=== PATIENT | female | born 1945 | race Caucasian/White ===

== ENCOUNTER 2019-09-11 06:21 | Inpatient (IN) | payer MEDICARE, SELFPAY ==
[2019-09-11] VITALS (70 sets, daily range): BP systolic 98–171; BP diastolic 43–82; PULSE 64–115; RESP 18–34; TEMP 36.8–36.9; O2SAT 89–99; BMI 31.8
--- NOTE | 2019-09-11 06:33 | XRR_ITS ---
PROCEDURE INFORMATION: Exam: XR Chest, 1 View Exam date and time: 09/11/2019 7:26 AM Age: 74 years old Clinical indication: Patient HX: Cough, dyspnea HX of copd; Additional info: Dyspbea TECHNIQUE: Imaging protocol: XR of the chest Views: 1 view. COMPARISON: CR Chest 1 [place] [id number] 06/20/2019 6:28 PM FINDINGS: Lungs: See Pleural Space Finding. Pleural space: Subtle opacity left costophrenic angle likely pleural thickening. Stable . Lungs are otherwise well aerated. Heart/Mediastinum: Unremarkable. No cardiomegaly. Bones/joints: Unremarkable. XR/XR chest 1V portable [id number] IMPRESSION: Subtle opacity left costophrenic angle likely pleural thickening. Stable . Lungs are otherwise well aerated.
--- NOTE | 2019-09-11 06:45 | W.ED.SOB ---
HPI - SOB/Dyspnea General: Chief Complaint: Shortness of Breath/Dyspnea Stated Complaint: SOB Time Seen by Provider: 09/11/19 06:33 History of Present Illness: HPI Narrative: 74-year-old female comes in complaining of shortness of breath. She has a history of COPD was recently switched to a CPAP machine she had seen a local clinical nurse educator. She denies any fever she has had increasing cough she has some pain with cough on the right lower chest but no substernal or central chest pain cough is been minimally productive she denies any nausea vomiting or diarrhea. No fever sweats or chills. She recently self treated with [id number] medications for a presumed cystitis but had not been seen by anyone or evaluate still states she has a pressure sensation when she urinates. MD elicited complaint: shortness of breath, cough and pain with inspiration Pertinent past history: COPD Onset (ago): day(s) Timing: constant Severity: moderate Exacerbating factors: exertion and deep breaths Relieving factors: oxygen, rest and bronchodilators Known history of: COPD Associated symptoms: Reports chest pain (Right lower chest worse with inspiration and cough) and cough; Deny abdominal pain, dizziness, extremity pain, fever(s), nausea, polydipsia, polyuria or vomiting Treatment prior to arrival: oxygen and bronchodilator Review of Systems Const: Denies: fever, chills, body aches, fatigue, malaise or night sweats Eyes: Denies: change in vision or blurry vision ENMT: Denies: throat pain, oral sores/lesions, dental pain, nasal discharge or nasal congestion Card: Reports: chest pain (Right lower chest worse with inspiration and cough) Resp: Reports: shortness of breath, non-productive cough and wheezing; Denies: productive cough GI: Denies: abdominal pain, nausea, vomiting, vomiting blood, coffee grounds in vomit, difficulty swallowing, heartburn/indigestion, diarrhea, constipation, cramping, blood in stool or black tarry stool : Denies: flank pain, painful urination, urinary frequency, urinary urgency, urinary incontinence or blood in urine Musc: Denies: neck pain, back pain, extremity pain, extremity swelling, joint pain or joint swelling Skin/Breast: Denies: rash, itching or redness Neuro: Denies: headache, numbness in extremities, weakness in extremities, changes in sensation, lack of coordination, difficulty walking, frequent falls, dizziness, vertigo or confusion Psych: Denies: anxiety, depression, loss of interest, visual hallucinations, auditory hallucinations, suicidal ideation or homicidal ideation Endo: Denies: excessive urination, excessive thirst, tired all the time or cold intolerance Bentley/Lymph: Denies: easy bruising, easy bleeding, petechiae, enlarged lymph nodes or tender lymph nodes PFSH ED PFSH: Medical History CAD (coronary artery disease) Cataracts, bilateral CHF (congestive heart failure) COPD (chronic obstructive pulmonary disease) Diabetes mellitus Hx of ectopic OLAYINKA (obstructive sleep apnea) Surgical History H/O lymph node excision H/O tubal ligation History of appendectomy History of cholecystectomy History of hysterectomy History of rectal surgery Hx of cataract surgery Hx of tonsillectomy Family History Other CHF (congestive heart failure) Cancer Crohn's disease Diabetes Hypertension Social History Smoking and tobacco status: current every day smoker cigarettes Years cigarettes smoked: 50 [ Other cigarette details: down to 4 cig/day ] Quit status (tobacco): considering quitting Smoking risk assessment/counseling performed?: Yes Alcohol intake: never Lives independently: Yes Household members: none Housing: Apartment Current occupational status: retired and disabled History of recent travel: No Current gender identity: Female Physical Exam Const: COMMON NORMALS: no apparent distress GENERAL APPEARANCE: cooperative and comfortable ORIENTATION/CONSCIOUSNESS: Yes awake, Yes oriented to person, Yes oriented to place and Yes oriented to time HENMT: COMMON NORMALS: normocephalic, head/scalp atraumatic, hearing grossly normal bilaterally, external ears normal, EAC's normal, TM's normal bilaterally, nasal mucous membranes and turbinates normal, moist oral mucous membranes and oropharynx normal HEAD & SCALP: normocephalic and atraumatic NOSE: nasal mucous membranes and turbinates normal EXTERNAL EAR: Yes external ears normal EXTERNAL AUDITORY CANAL: EAC's normal TYMPANIC MEMBRANE: TM's normal bilaterally Eye: COMMON NORMALS: PERRL, EOMs intact bilaterally, conjunctivae normal and no scleral icterus CONJUNCTIVA: Yes conjunctivae normal PUPIL: Yes PERRL Neck/C-Spine: COMMON NORMALS: full ROM, no lymphadenopathy, supple and no JVD Lymph: LYMPHATIC: no lymphadenopathy noted and no lymphedema noted Resp: EFFORT & INSPECTION: Yes tachypneic, Yes respiratory distress, Yes pursed lip breathing and Yes labored AUSCULTATION: diminished lung sounds OTHER: Diminished breath sounds throughout bilaterally has expiratory wheeze no rales or rhonchi noted Cardio: COMMON NORMALS: no JVD, regular rate, regular rhythm and no murmurs RATE: regular rate RHYTHM: regular rhythm GI: COMMON NORMALS: soft to palpation and no hepatosplenomegaly AUSCULTATION: Yes normoactive bowel sounds PALPATION: Yes soft, No tender, No guarding and Yes no hepatosplenomegaly Extremity: COMMON NORMALS: normal to inspection, normal capillary refill, no clubbing, cyanosis or edema, no calf tenderness and no pedal edema Neuro: SENSORIUM/ORIENTATION: Yes oriented to person, Yes oriented to place and Yes oriented to time Skin: COMMON NORMALS: no rashes or lesions noted GENERAL SKIN EXAM: no rashes or lesions noted Course ED course: Patient has hypercapnic respiratory failure tried on BiPAP did not show significant improvement we did increase her respiratory rate. We also gave calcium gluconate sodium bicarb glucose and insulin and albuterol treatments to improve her potassium. She has mild acute kidney injury she is also been given fluids this will also require attention while she is on inpatient. She will require hospitalization discussed Dr. Felder he will admit. Vital Signs: Vital signs: Vital Signs Temperature 98.6 F 09/12/19 13:02 Pulse Rate 102 H 09/12/19 13:02 Respiratory Rate 18 09/12/19 13:02 Blood Pressure 144/62 09/12/19 13:02 Pulse Oximetry 89 L 09/12/19 13:02 MDM - SOB/Dyspnea Lab Data: Labs: Lab Results 09/11/19 09/11/19 09/11/19 Range/Units 00:00 01:20 06:30 WBC 7.4 (4.0-10.0) 10^3/ uL RBC 3.73 L (4.1-5.3) 10^6/u L Hgb 10.0 L (11.5-15.3) g/dL Hct 34.9 L (37.0-47.0) % MCV 93.6 (81-99) fL MCH 26.8 L (28.0-34.0) pg MCHC 28.7 L (30.0-36.0) g/dL RDW 15.9 H (12.1-15.1) % Plt Count 264 (130-400) 10^3/c mm MPV 11.8 H (7.4-10.4) fL Neut % (Auto) 75.8 % Lymph % (Auto) 9.3 % [place] % (Auto) 6.9 % Eos % (Auto) 6.5 % Baso % (Auto) 0.8 % Neut # (Auto) 5.6 (1.8-7.7) 10^3/u L Lymph # (Auto) 0.7 L (0.8-4.8) 10^3/u L [place] # (Auto) 0.5 (0.2-0.9) 10^3/u L Eos # (Auto) 0.5 (0.0-0.8) 10^3/u L Baso # (Auto) 0.1 (0.0-0.1) 10^3/u L Nucleated RBC % (a uto) 0 % Nucleated RBCs # 0.0 /100WBC Specimen Type Sample Site ABG pH (7.35-7.45) ABG pCO2 (35-45) mmHg ABG pO2 (80.0-100.0) mmH g ABG HCO3 (22-26) mmol/L ABG O2 Saturation ABG Base Excess (-2.0-2.0) mmol/ L Kike Test A-a O2 Gradient (5-10) mmHg Hematocrit (37-47) % Hgb O2 Saturation (95-100) % Carboxyhemoglobin (0.4-20.1) %THgb Methemoglobin (0.4-1.5) % Total Hemoglobin (12-16) g/dL Ionized Calcium (1.1-1.4) mmol/L O2 Delivery Device O2 Liters/Min % FiO2 % Journeyman Plumber ID Sodium (136-145) mmol/L Potassium 5.8 H (3.5-5.1) mmol/L Chloride (98-107) mmol/L Carbon Dioxide (22-29) mmol/L Anion Gap (5-19) BUN (8-23) mg/dL Creatinine (0.5-0.9) mg/dL Glucose (65-115) mg/dL Calculated Osmolal ity (285-295) mOsm/k g Calcium (8.5-10.5) mg/dL Total Bilirubin (0.15-1.2) mg/dL AST (0-32) U/L ALT (0-33) U/L Alkaline Phosphata se (35-105) IU/L Total Protein (6.6-8.7) g/dL Albumin (3.5-5.2) g/dL Globulin (1.3-4.6) g/dL Ur Eosinophil Smea r 0 (0-0) Urine Eosinophils No eosinophils se en 09/11/19 09/11/19 09/11/19 Range/Units 06:30 07:07 09:30 WBC (4.0-10.0) 10^3/ uL RBC (4.1-5.3) 10^6/u L Hgb (11.5-15.3) g/dL Hct (37.0-47.0) % MCV (81-99) fL MCH (28.0-34.0) pg MCHC (30.0-36.0) g/dL RDW (12.1-15.1) % Plt Count (130-400) 10^3/c mm MPV (7.4-10.4) fL Neut % (Auto) % Lymph % (Auto) % [place] % (Auto) % Eos % (Auto) % Baso % (Auto) % Neut # (Auto) (1.8-7.7) 10^3/u L Lymph # (Auto) (0.8-4.8) 10^3/u L [place] # (Auto) (0.2-0.9) 10^3/u L Eos # (Auto) (0.0-0.8) 10^3/u L Baso # (Auto) (0.0-0.1) 10^3/u L Nucleated RBC % (a uto) % Nucleated RBCs # /100WBC Specimen Type Arterial Arterial Sample Site Radial, left Radial, right ABG pH 7.26 L 7.22 L (7.35-7.45) ABG pCO2 63.0 H* 66.3 H* (35-45) mmHg ABG pO2 79.3 L 81.3 (80.0-100.0) mmH g ABG HCO3 28.1 H 27.1 H (22-26) mmol/L ABG O2 Saturation 95.4 95.2 ABG Base Excess 0.0 -1.5 (-2.0-2.0) mmol/ L Kike Test Pos Pos A-a O2 Gradient 100.0 H 122.2 H (5-10) mmHg Hematocrit 32.0 L 31.8 L (37-47) % Hgb O2 Saturation 94.4 L 94.3 L (95-100) % Carboxyhemoglobin 0.7 0.6 (0.4-20.1) %THgb Methemoglobin 0.3 L 0.4 (0.4-1.5) % Total Hemoglobin 10.4 L 10.4 L (12-16) g/dL Ionized Calcium 1.2 1.3 (1.1-1.4) mmol/L O2 Delivery Device Nc Bipap O2 Liters/Min 4.0 % FiO2 36.0 40.0 % Journeyman Plumber ID ed ed Sodium 137 141.0 140.0 (136-145) mmol/L Potassium 6.4 H 6.3 H 6.4 H (3.5-5.1) mmol/L Chloride 102 (98-107) mmol/L Carbon Dioxide 28 (22-29) mmol/L Anion Gap 13.4 (5-19) BUN 35 H (8-23) mg/dL Creatinine 1.5 H (0.5-0.9) mg/dL Glucose 143 H 118.0 H 146.0 H (65-115) mg/dL Calculated Osmolal ity 284 L (285-295) mOsm/k g Calcium 9.6 (8.5-10.5) mg/dL Total Bilirubin 0.3 (0.15-1.2) mg/dL AST 15 (0-32) U/L ALT 6 (0-33) U/L Alkaline Phosphata se 69 (35-105) IU/L Total Protein 7.3 (6.6-8.7) g/dL Albumin 3.9 (3.5-5.2) g/dL Globulin 3.4 (1.3-4.6) g/dL Ur Eosinophil Smea r (0-0) Urine Eosinophils Discharge Plan Discharge Patient Disposition: Admitted As Inpatient Admit Provider: Mike Ramos Clinical Impression: Acute and chronic respiratory failure with hypercapnia, Acute kidney injury, Acute hyperkalemia Condition: Stable Interventions: ED Discharge Assessment Last Done: 09/11/19 15:18 Discharge Date/Time: 09/11/19 15:20 Coding Level of Care Code ED Supervisor Network Control Operators for Chg Fwd Exam Comprehensive
[2019-09-11 07:00] LABS: Basophils # 0.1 10^3/uL (0.0-0.1); Basophils % 0.8 %; Eosinophils # 0.5 10^3/uL (0.0-0.8); Eosinophils % 6.5 %; Hematocrit 34.9 % (37.0-47.0); Lymphocytes # 0.7 10^3/uL (0.8-4.8); Lymphocytes % 9.3 %; Mean Corpuscular HGB Conc 28.7 g/dL (30.0-36.0); Mean Corpuscular Hemoglobin 26.8 pg (28.0-34.0); Mean Corpuscular Volume 93.6 fL (81-99); Mean Platelet Volume 11.8 fL (7.4-10.4); Monocytes # 0.5 10^3/uL (0.2-0.9); Monocytes % 6.9 %; Neutrophils # 5.6 10^3/uL (1.8-7.7); Neutrophils % 75.8 %; Nucleated Red Blood Cells % 0 %; Platelet Count 264 10^3/cmm (130-400); Red Blood Count 3.73 10^6/uL (4.1-5.3); Red Cell Distribution Width 15.9 % (12.1-15.1); White Blood Count 7.4 10^3/uL (4.0-10.0)
[2019-09-11] MEDS: ipratropium-albuterol 3 mL Neb INHALATION ×3 (07:01→20:44)
[2019-09-11 07:13] LABS: Alanine Aminotransferase 6 U/L (0-33); Albumin Level 3.9 g/dL (3.5-5.2); Alkaline Phosphatase 69 IU/L (35-105); Anion Gap 13.4 (5-19); Aspartate Amino Transferase 15 U/L (0-32); Blood Urea Nitrogen 35 mg/dL (8-23); Calcium 9.6 mg/dL (8.5-10.5); Carbon Dioxide 28 mmol/L (22-29); Chloride 102 mmol/L (98-107); Globulin 3.4 g/dL (1.3-4.6); Glucose 143 mg/dL (65-115); Osmolality Calculated 284 mOsm/kg (285-295); Potassium 6.4 mmol/L (3.5-5.1); Sodium 137 mmol/L (136-145); Total Bilirubin 0.3 mg/dL (0.15-1.2); Total Protein 7.3 g/dL (6.6-8.7)
[2019-09-11 07:18] LABS: ABG PH Result 7.26 (7.35-7.45); Blood Gas Allen Test Pos; Blood Gas Sample Site Radial, left; Blood Gas Sample Type Arterial; Carboxyhemoglobin 0.7 %THgb (0.4-20.1); HCO3 ABG 28.1 mmol/L (22-26); HGB O2 Sat 94.4 % (95-100); Ionized Calcium Level - ABG 1.2 mmol/L (1.1-1.4); Methemoglobin 0.3 % (0.4-1.5); Oxygen Device NC; Oxygen Saturation ABG 95.4; PO2 ABG 79.3 mmHg (80.0-100.0); Potassium Level - ABG 6.3 mmol/L (3.5-5.0); Total Hemoglobin 10.4 g/dL (12-16)
[2019-09-11] MEDS: insulin regular-human 100 units/1 mL 10 UNIT IVP (07:59)
[2019-09-11] MEDS: morphine 4 mg/mL SDV 1 mL IVP (08:09)
[2019-09-11] MEDS: sodium chloride 0.9% 500 ML 999 ML IV (09:38)
[2019-09-11 09:41] LABS: ABG PH Result 7.22 (7.35-7.45); Alveolar-Arterial Oxygen Gradi 122.2 mmHg (5-10); Arterial Blood Gas Hematocrit 31.8 % (37-47); Base Excess ABG -1.5 mmol/L (-2.0-2.0); Blood Gas Allen Test Pos; Blood Gas Sample Site Radial, right; Blood Gas Sample Type Arterial; Carboxyhemoglobin 0.6 %THgb (0.4-20.1); HCO3 ABG 27.1 mmol/L (22-26); HGB O2 Sat 94.3 % (95-100); Ionized Calcium Level - ABG 1.3 mmol/L (1.1-1.4); Methemoglobin 0.4 % (0.4-1.5); Oxygen Device BIPAP; Oxygen Saturation ABG 95.2; PO2 ABG 81.3 mmHg (80.0-100.0); Potassium Level - ABG 6.4 mmol/L (3.5-5.0); Total Hemoglobin 10.4 g/dL (12-16)
[2019-09-11 09:43] LABS: ABG PCO2 66.3 mmHg (35-45)
[2019-09-11] MEDS: LORazepam 2 mg/mL INJ 1 mL 1 MG IVP (09:58)
[2019-09-11] MEDS: insulin regular-human 100 units/1 mL 5 UNIT IVP (12:26)
[2019-09-11] MEDS: dextrose 50% syringe 50 mL IVP ×2 (13:01→23:09)
[2019-09-11] MEDS: sodium bicarbonate 8.4% 1 mEq/mL 50mL Syr 50 MEQ IVP (13:30)
[2019-09-11] MEDS: sodium bicarbonate 8.4% 1 mEq/mL 50mL Syr 100 MEQ IVP (13:35)
--- NOTE | 2019-09-11 14:16 | P.HP_ITS ---
Providers/Chief Complaint Admitting Physician: Mike Ramos Primary Care Provider: Victorino Francis MD Chief Complaint: SOB History of Present Illness Citlalli Mccord is a 74 year old female with history of COPD, CHF, DM2, HLD, OLAYINKA on CPAP, current smoker 4 cig/day, following with a containers sales representative who had referred her for a PFT and have been making arrangements for a different noninvasive ventilation (possibly trilogy) but family says it would cost several thousand dollars and family could not afford that. She was brought by her family for evaluation due to progressive shortness of breath over the last week or so. She says at home she normally uses 3 L of oxygen by nasal cannula, and says that her on her usual oxygen her saturation was in the 80s. She has been using her CPAP for sleep apnea, and says has been using her nebulizer, but still without improvement. In ER she is found in respiratory stenosis, and is awake, although slightly drowsy, but tolerating BiPAP well. ABG had not improved, although she is reporting feeling somewhat better. She reports she has been having productive cough of yellowish-greenish sputum. She also thinks she may have had an UTI several days ago due to some lower abdominal discomfort for which she took something [id number] but does not remember the name. On chest x-ray she is noted to have stable opacity in the left costophrenic angle, suspected pleural thickening. She reports a history of CHF with pleural effusion on the left side for which she has had a [place] drain years ago. She is afebrile without leukocytosis. Creatinine is noted elevated 1.5, as is potassium at 6.4. In ER she received insulin, dextrose, calcium gluconate, DuoNeb and bicarbonate. She was given Solu-Medrol. Received an IV fluid bolus. Review of Systems Const: Reports: fatigue; Denies: fever, chills, body aches or malaise Eyes: Denies: change in vision or eye redness ENMT: Denies: throat pain, oral sores/lesions or ear pain Card: Denies: chest pain, edema, pre-syncope or shortness of breath on exertion Resp: Reports: shortness of breath, productive cough and change in phlegm c olor; Denies: coughing up blood GI: Denies: abdominal pain, nausea, vomiting, diarrhea, constipation, blood in stool or black tarry stool : Reports: urinary urgency; Denies: flank pain, urinary frequency or blood in urine Musc: Denies: back pain, joint swelling or redness Skin/Breast: Reports: rash (Chronic dry skin, pruritus of lower extremities which she scratches leading to excoriations); Denies: sores or new lesion Neuro: Denies: headache, numbness in extremities, weakness in extremities, dizziness, confusion or seizure-like activity Endo: Denies: excessive urination or excessive thirst Bentley/Lymph: Denies: easy bleeding or purpura All/Imm: Denies: hives, throat swelling or tongue swelling Medications/Allergies Allergies Allergy/AdvReac Type Severity Reaction Status Date / Time codeine Allergy Severe ALGY-Hives Verified 08/31/19 10:40 Penicillins Allergy ALGY-Rash Verified 08/31/19 10:40 iodine AdvReac ADR-Nausea Verified 08/31/19 10:40 PFSH Acute PFSH: Medical History CAD (coronary artery disease) Cataracts, bilateral CHF (congestive heart failure) COPD (chronic obstructive pulmonary disease) Diabetes mellitus Hx of ectopic OLAYINKA (obstructive sleep apnea) Surgical History H/O lymph node excision H/O tubal ligation History of appendectomy History of cholecystectomy History of hysterectomy History of rectal surgery Hx of cataract surgery Hx of tonsillectomy Family History Other CHF (congestive heart failure) Cancer Crohn's disease Diabetes Hypertension Social History Smoking and tobacco status: current every day smoker cigarettes Years cigarettes smoked: 50 [ Other cigarette details: down to 4 cig/day ] Quit status (tobacco): considering quitting Smoking risk assessment/counseling performed?: Yes Alcohol intake: never Lives independently: Yes Household members: none Housing: Apartment Current occupational status: retired and disabled History of recent travel: No Current gender identity: Female Vitals/I&O/Wt Last Vital Signs Temp 98.3 F 03/09/20 06:22 Pulse 80 09/11/19 13:45 Resp 20 H 09/11/19 08:09 BP 127/43 09/11/19 06:38 Pulse Ox 98 09/11/19 13:45 Weight last 48 hrs Weight 81.647 kg Physical Exam Const: COMMON NORMALS: no apparent distress and oriented x3 HENMT: COMMON NORMALS: oropharynx normal Neck/C-Spine: COMMON NORMALS: no JVD Resp: COMMON NORMALS: normal respiratory effort AUSCULTATION: diminished lung sounds bilateral Cardio: COMMON NORMALS: no JVD, regular rhythm, S1 normal heart sound, S2 normal heart sound and no murmurs RHYTHM: regular rhythm HEART SOUNDS: S1 normal and S2 normal GI: COMMON NORMALS: normal to inspection, nondistended, normoactive bowel sounds, soft to palpation and non-tender PALPATION: Yes soft Extremity: COMMON NORMALS: no joint enlargement and no pedal edema NARRATIVE EXTREMITY EXAM: Dopplerable PT and DP pulses bilaterally. Neuro: COMMON NORMALS: oriented x3 and moves all extremities Skin: OTHER: Dry skin bilateral lower extremities, she is scratching her legs multiple times during the visit. Multiple small excoriations. Data : 09/11/19 06:30 09/11/19 06:30 A&P Assessment and plan (1) Acute and chronic respiratory failure: Requiring BiPAP support. ABG did not significantly improve, however, she is feeling better subjectively. She is slightly drowsy, but wakes up easily. Tolerating BiPAP well. Severe exacerbation of COPD, with cough, productive sputum, dyspnea. Purulent appearing sputum, start on antibiotic. Continue steroid. Collect sputum culture. Check rapid flu. She also reports orthopnea last several days, and uses 80 mg Lasix at home every day. Status: Acute Code(s): J96.20 - Acute and chronic respiratory failure, unspecified whether with hypoxia or hypercapnia (2) COPD exacerbation: As above. Status: Acute Code(s): J44.1 - Chronic obstructive pulmonary disease with (acute) exacerbation (3) Acute kidney injury: Creatinine up to 1.5, with intermittent acute kidney injury in the past, however, with return to baseline normal creatinine. She reports using Aleve at home. Discussed with her and family to avoid further Aleve use. She is also on lisinopril, Lasix. Hold LUCILA inhibitor at this time. Monitor renal function. Status: Acute Code(s): N17.9 - Acute kidney failure, unspecified (4) Hyperkalemia: Potassium 6.4. Received calcium gluconate, insulin, dextrose in ER. DuoNeb. At home on potassium supplement, lisinopril. Hold these medications. With acute kidney injury. We will give her a dose of Kayexalate. Received IV bolus in ER, will give her a dose of Lasix. Status: Acute Code(s): E87.5 - Hyperkalemia Additional A&P Information Urinary urgency: States that has been having for couple days and took something [id number]. Will check UA. Diabetes: Continue Lantus, SSI. COPD: Follows with pulmonology, recently they have been trying to arrange for different NIPPV device. She could not afford this. Continue follow-up. OLAYINKA: On nightly CPAP at home. CAD Attestations Medical Necessity Statement*: Admission of over 2 midnights is going to needed for assessment management of acute on chronic respiratory failure, severe exacerbation of COPD. Coding Level of Care Code Acute Piping Design Specialist for Isidoro Fwd Exam Comprehensive Diagnoses Acute and chronic respiratory failure J96.20 COPD exacerbation J44.1 Acute kidney injury N17.9 Hyperkalemia E87.5
--- NOTE | 2019-09-11 14:22 | PC.NURSE ---
hospitalist in room for eval, requested doppler for peda; pulses . pulses present in both feet
[2019-09-11 15:12] LABS: Influenza A by IFA Negative (Negative); Influenza B by IFA Negative (Negative)
[2019-09-11] MEDS: levofloxacin-dextrose 5 % 750 MG/150 ML PREMIX 150 MG IV (16:37)
[2019-09-11] MEDS: sodium polystyrene sulfonate 15 gm/60 mL Btl PO (16:37)
[2019-09-11] MEDS: FUROsemide 10 mg/mL SDV 4mL 40 MG IVP (16:38)
[2019-09-11] MEDS: enoxaparin 40 mg/0.4 mL Syringe SUBCUT (16:38)
[2019-09-11] MEDS: budesonide 0.5 mg/2 mL Neb INHALATION (16:39)
[2019-09-11 17:09] LABS: Glucose Point of Care 366 mg/dL (70-110)
[2019-09-11 20:20] LABS: Urine Appearance SL Hazy (CLEAR); Urine Color Straw (Yellow); pH Urine 5 (5-7)
[2019-09-11 20:21] LABS: Add Urine Microscopic? YES; Bilirubin Urine Neg (NEGATIVE); Blood Urine Neg (Negative); Glucose Urine UA 4+ (Normal); Ketones Urine Negative (Negative); Leukocyte Esterase Urine Negative (Negative); Nitrate Urine Positive (Negative); Protein Urine Neg (Negative); Squamous Epithelial Cell Urine 0-4 (0-5); Urobilinogen Urine Norm (Negative); WBC Urine 25-40 /hpf (0-5)
[2019-09-11 20:22] LABS: Potassium 6.7 mmol/L (3.5-5.1)
[2019-09-11 20:22] LABS: Add Urine Culture? Yes; Bacteria Urine 3+
--- NOTE | 2019-09-11 21:26 | P.CONIM_ITS ---
Providers/Reason For Consult Consulting Physican/Specialty*: telenephrology/ marc colón md Reason for Consult*: nevin/ hyperkalemia Requesting Physcian: Dr. Vázquez and Dr. Huerta Attending Physician: Mike Ramos Primary Care Provider: Victorino Francis MD History of Present Illness History of Present Illness Citlalli Mccord is a 74 year old female h/o copd, chf, dm, obesity, ex-etoh, current tob use. Pt has been increasing her diuretics, and is on lucila-i and potassium. pt is here w/ severe sob- that is improving in ICU. Pt had normal cr of 0.9- inc to 1.2 in jun 2019, and now cr is 1.5 on lasix at least 80 mg /day. pt has hypercapneic resp acidosis- and has been unable to get CPAP/ BiPAP. Review of Systems General: Reports: 10 or more systems reviewed and unremarkable except in HPI and below Const: Reports: fatigue, malaise and change in sleep pattern Card: Reports: palpitations, edema and shortness of breath on exertion Resp: Reports: shortness of breath Skin/Breast: Reports: itching Psych: Reports: depression Bentley/Lymph: Reports: easy bruising Meds/Allergies Home Medications and Allergies Home Medications Medication Instructions Recorded Confirmed Type albuterol sulfate 0.63 mg/3 mL See Rx Instructions .ROUTE 07/25/19 09/11/19 History solution for nebulization .COMPLEX PRN ml albuterol sulfate 90 mcg/actuation 2 puff INHALATION Q6H PRN 07/25/19 09/11/19 History aerosol inhaler aspirin 81 mg tablet,delayed 81 mg PO DAILY 07/25/19 09/11/19 History release betamethasone dipropionate 0.05 % 1 applic TOPICAL BID PRN 07/25/19 09/11/19 History topical cream budesonide-formoterol HFA 160 2 puff INHALATION BID 07/25/19 09/11/19 History mcg-4.5 mcg/actuation aerosol inhaler citalopram 10 mg tablet 10 mg PO DAILY 07/25/19 09/11/19 History furosemide 40 mg tablet 80 mg PO QAM tab 07/25/19 09/11/19 History insulin glargine 100 unit/mL (3 60 unit SUBCUT DAILY ml 07/25/19 09/11/19 History mL) subcutaneous pen insulin lispro 100 unit/mL See Rx Instructions SUBCUT TID 07/25/19 09/11/19 History subcutaneous pen lisinopril 20 mg tablet 20 mg PO DAILY 07/25/19 09/11/19 History metformin 1,000 mg tablet 1,000 mg PO BID 07/25/19 09/11/19 History montelukast 10 mg tablet 10 mg PO DAILY 07/25/19 09/11/19 History nitroglycerin 0.4 mg sublingual 0.4 mg SUBLINGUAL Q5M PRN 07/25/19 09/11/19 History tablet potassium chloride 10 mEq 10 meq PO DAILY 07/25/19 09/11/19 History capsule,extended release pravastatin 20 mg tablet 20 mg PO DAILY 07/25/19 09/11/19 History sitagliptin 100 mg tablet 100 mg PO DAILY 07/25/19 09/11/19 History tiotropium bromide 18 mcg capsule 1 cap INHALATION DAILY 07/25/19 09/11/19 History with inhalation device Allergies Allergy/AdvReac Type Severity Reaction Status Date / Time codeine Allergy Severe ALGY-Hives Verified 08/31/19 10:40 Penicillins Allergy ALGY-Rash Verified 08/31/19 10:40 iodine AdvReac ADR-Nausea Verified 08/31/19 10:40 Current Medications Current Medications Generic Name Dose Route Start Last Admin Trade Name Freq PRN Reason Stop Dose Admin Albuterol/Ipratropium 3 ml 09/11/19 16:00 09/11/19 20:44 Duoneb INHALATION 3 ml Q4H.RESPIRATORY SARY Administration Budesonide 0.5 mg 09/11/19 15:25 09/11/19 16:39 Pulmicort INHALATION 0.5 mg BID.RESPIRATORY SARY Administration Enoxaparin Sodium 40 mg 09/11/19 15:15 09/11/19 16:38 Lovenox SUBCUT 40 mg Q24H SARY Administration Furosemide 40 mg 09/11/19 15:30 09/11/19 16:38 Lasix IVP 40 mg Q24H SARY Administration Levofloxacin/Dextrose 750 mg in 150 mls @ 150 mls/hr 09/11/19 15:00 09/11/19 19:31 Levaquin-D5w IV Infused Q24H SARY Infusion Protocol Insulin Aspart 0 unit 09/11/19 18:00 09/11/19 18:18 Novolog SUBCUT 14 unit WM&BEDTIME SARY Administration Protocol Methylprednisolone Sodium Succinate 60 mg 09/11/19 15:00 09/11/19 16:37 Solu-Medrol IVP 60 mg Q6H SARY Administration PFSH Acute PFSH: Medical History CAD (coronary artery disease) Cataracts, bilateral CHF (congestive heart failure) COPD (chronic obstructive pulmonary disease) Diabetes mellitus Hx of ectopic OLAYINKA (obstructive sleep apnea) Surgical History H/O lymph node excision H/O tubal ligation History of appendectomy History of cholecystectomy History of hysterectomy History of rectal surgery Hx of cataract surgery Hx of tonsillectomy Family History Other CHF (congestive heart failure) Cancer Crohn's disease Diabetes Hypertension Social History Smoking and tobacco status: current every day smoker cigarettes Years cigarettes smoked: 50 [ Other cigarette details: down to 4 cig/day ] Quit status (tobacco): considering quitting Smoking risk assessment/counseling performed?: Yes Alcohol intake: never Lives independently: Yes Household members: none Housing: Apartment Current occupational status: retired and disabled History of recent travel: No Current gender identity: Female Dietary Habits: Current diet type/program: diabetic Caffeine: Yes Caffeine intake frequency: coffee Number of coffee servings: 3 During the past year weight has: remained stable Vitals/I&O/Wt Last Vital Signs Temp 98.4 F 09/11/19 20:00 Pulse 98 09/11/19 20:44 Resp 20 H 09/11/19 20:44 BP 119/69 09/11/19 20:00 Pulse Ox 99 09/11/19 20:44 09/11/19 09/11/19 09/11/19 06:59 14:59 22:59 Intake Total 1200 / 1200 Output Total 120 / 120 Balance 1080 / 1080 Weight last 48 hrs Weight 81.647 kg Physical Exam Narrative: EXAM NARRATIVE: elderly appearing, sob w/ nc 02 heent- nc/at, eomi, anicteric neck supple, no jvp lung ronchi, dull rt base heart reg w/ pvc's, +CON, no rub abd soft, nt, nd, + bs ext min edema skin- bruises and ecchymoses neuro- a,a, o x 3 pulses + psych normal mood Data Micro: Micro: Microbiology 09/11/19 16:00 Gram Stain - Final Sputum - Expector ated Sputum A&P Additional A&P Information 74 yr old female 1/ copd exacerbation and possible pna as per hospitalist 2. NEVIN- from diuretics in setting of dm -stop lasix -check urine studies -give ivf -no metformin STOP LUCILA-I -NO CHF ON CXR -check in and out -check basic serologies -check spep/upep- given anemia 3. hyperkalemia- rx medically and monitor on tele- repeat chem 7 in 4 hrs- call me w/ results 4. anemia eval Consult Attestations Medical Necessity Statement: nevin/ hyperkalemia/ hypercapneic resp acidosis Time Spent in Patient Care: Greater than 35 minutes (>than 50% of time spent in counselling and/or direct pt care on unit) . Critical Care Time: Critical Care Time (min): 40 Coding Level of Care Code Acute Novelty Twister Operator for Isidoro Randall
[2019-09-11 22:29] LABS: Creatine Phosphokinase 31 U/L (26-192)
[2019-09-11] MEDS: polyethylene glycol 3350 Pkt 17 gm PO (22:54)
[2019-09-11] MEDS: sodium polystyrene sulfonate 15 gm/60 mL Btl 30 GM PO (22:57)
[2019-09-11] MEDS: sodium bicarbonate 150 MEQ in dextrose 5% 1,000 ML 100 MEQ IV (22:59)
[2019-09-11] MEDS: calcium gluconate 0.1 gm/mL 10% SDV 10mL 1 GM IVP (23:00)
[2019-09-11] MEDS: insulin regular-human 10 UNIT in SYRINGE 1 EACH IVP (23:10)
[2019-09-11] MEDS: LORazepam 2 mg/mL INJ 1 mL 0.5 MG IVP (23:17)
[2019-09-12] VITALS (21 sets, daily range): BP systolic 107–152; BP diastolic 49–76; PULSE 80–102; RESP 18–95; TEMP 36.4–37; O2SAT 2–98
[2019-09-12 00:30] LABS: Potassium 5.8 mmol/L (3.5-5.1)
[2019-09-12 02:13] LABS: Hepatitis C Virus Antibody Reactive (Nonreactive)
[2019-09-12 02:32] LABS: Eosinophil Urine No Eosinophils Seen
[2019-09-12 02:33] LABS: Urine Eosinophil Count 0 (0-0)
[2019-09-12 03:21] LABS: Alanine Aminotransferase < 5 U/L (0-33); Albumin Level 3.4 g/dL (3.5-5.2); Alkaline Phosphatase 61 IU/L (35-105); Anion Gap 18.9 (5-19); Blood Urea Nitrogen 35 mg/dL (8-23); Calcium 9.8 mg/dL (8.5-10.5); Carbon Dioxide 26 mmol/L (22-29); Chloride 98 mmol/L (98-107); Globulin 3.3 g/dL (1.3-4.6); Glucose 169 mg/dL (65-115); Iron 61 ug/dL (37-145); Magnesium 2.2 mg/dL (1.7-2.3); Osmolality Calculated 285 mOsm/kg (285-295); Phosphorus 3.4 mg/dL (2.5-4.5); Potassium 5.9 mmol/L (3.5-5.1); Sodium 137 mmol/L (136-145); Total Bilirubin 0.3 mg/dL (0.15-1.2); Total Protein 6.7 g/dL (6.6-8.7)
[2019-09-12] MEDS: ipratropium-albuterol 3 mL Neb INHALATION ×6 (03:30→23:54)
--- NOTE | 2019-09-12 03:31 | PC.PHAR ---
RENAL DOSING FOR LEVAQUIN CRCL 32.658. Changed Levaquin 750 mg q24h to q48h
[2019-09-12 03:44] LABS: Aspartate Amino Transferase 14 U/L (0-32)
[2019-09-12 03:45] LABS: Percent Saturation 18.3 % (20-50); Total Iron Binding Capacity 332 mcg/dl; Unsaturated Iron Binding 271 ug/dL (112-347)
[2019-09-12 04:39] LABS: Basophils % 0.1 %; Hematocrit 31.4 % (37.0-47.0); Hemoglobin 9.9 g/dL (11.5-15.3); Lymphocytes # 0.4 10^3/uL (0.8-4.8); Lymphocytes % 4.3 %; Mean Corpuscular HGB Conc 31.5 g/dL (30.0-36.0); Mean Corpuscular Hemoglobin 29.6 pg (28.0-34.0); Mean Corpuscular Volume 93.7 fL (81-99); Mean Platelet Volume 11.5 fL (7.4-10.4); Monocytes # 0.4 10^3/uL (0.2-0.9); Monocytes % 4.1 %; Neutrophils # 8.1 10^3/uL (1.8-7.7); Neutrophils % 90.8 %; Nucleated Red Blood Cells % 0 %; Platelet Count 260 10^3/cmm (130-400); Red Blood Count 3.35 10^6/uL (4.1-5.3); Red Cell Distribution Width 15.9 % (12.1-15.1); White Blood Count 8.9 10^3/uL (4.0-10.0)
--- NOTE | 2019-09-12 07:10 | P.PN_ITS ---
Subjective Subjective: Interval history: feels stable. weak, sob, lethargic. had a small BM. no n/v/d/cedeno/c/p. chronic sob and PEREZ Medications: Reviewed: Yes Medication Review Details: Current Medications Acetaminophen (Tylenol) 650 mg PO Q6H PRN PRN Reason: Mild/Mod Pain Or Temp >/= 101 Albuterol/Ipratropium (Duoneb) 3 ml INHALATION Q4H.RESPIRATORY [facility] Last Admin: 09/12/19 03:37 Dose: Not Given Documented by: Albuterol/Ipratropium (Duoneb) 3 ml INHALATION Q4H.RESPIRATORY PRN PRN Reason: SHORTNESS OF BREATH Aspirin (Aspirin Ec) 81 mg PO DAILY [facility] Atorvastatin Calcium (Lipitor) 20 mg PO DAILY [facility] Betamethasone Dipropionate (Diprolene) 1 applic TOPICAL BID PRN PRN Reason: prn Budesonide (Pulmicort) 0.5 mg INHALATION BID.RESPIRATORY [facility] Last Admin: 09/11/19 16:39 Dose: 0.5 mg Documented by: Citalopram Hydrobromide (Celexa) 10 mg PO DAILY [facility] Dextrose (D50w) 25 ml IVP ONCE PRN; Protocol PRN Reason: hypoglycemia protocol Dextrose (D50w) 50 ml IVP PRN PRN; Protocol PRN Reason: hypoglycemia protocol Enoxaparin Sodium (Lovenox) 40 mg SUBCUT Q24H [facility] Last Admin: 09/11/19 16:38 Dose: 40 mg Documented by: Glucagon (Glucagen) 1 mg IM ONCE PRN; Protocol PRN Reason: Adult Acute Hypoglycemia Prot. Dextrose (D5w) 500 mls @ 100 mls/hr IV ONCE PRN; Protocol PRN Reason: Adult Acute Hypoglycemia Prot Sodium Bicarbonate 150 meq/ (Dextrose) 1,150 mls @ 100 mls/hr IV .[id number] [facility] Last Admin: 09/11/19 22:59 Dose: 100 mls/hr Documented by: Levofloxacin/Dextrose (Levaquin-D5w) 750 mg in 150 mls @ 150 mls/hr IV Q48H [facility]; Protocol Insulin Aspart (Novolog) 0 unit SUBCUT WM&BEDTIME SARY; Protocol Last Admin: 09/11/19 23:08 Dose: 8 unit Documented by: Insulin Glargine (Lantus) 60 unit SUBCUT DAILY [facility] Lorazepam (Ativan) 0.5 mg IVP Q4H PRN PRN Reason: ANXIETY Last Admin: 09/11/19 23:17 Dose: 0.5 mg Documented by: Methylprednisolone Sodium Succinate (Solu-Medrol) 60 mg IVP Q6H [facility] Last Admin: 09/12/19 03:45 Dose: 60 mg Documented by: Morphine Sulfate (Morphine) 2 mg IVP Q4H PRN PRN Reason: SEVERE PAIN Ondansetron HCl (Zofran) 4 mg IVP Q8H PRN PRN Reason: vomiting, or N/V if npo Polyethylene Glycol (Miralax) 17 gm PO BID [facility] Last Admin: 09/11/19 22:54 Dose: 17 gm Documented by: Vitals/I&O/Wt Last Vital Signs Temp 98.5 F 09/12/19 06:00 Pulse 85 09/12/19 06:00 Resp 23 H 09/12/19 06:00 BP 123/71 09/12/19 02:00 Pulse Ox 95 09/12/19 06:00 09/11/19 09/12/19 09/12/19 22:59 06:59 14:59 Intake Total 1680 / 1680 0.1 / 1680.1 Output Total 370 / 370 350 / 720 Balance 1310 / 1310 -349.9 / 960.1 Weight last 48 hrs Weight 81.647 kg Physical Exam Narrative: EXAM NARRATIVE: elderly appearing, sob w/ nc 02- looks better than last night heent- nc/at, eomi, anicteric neck supple, no jvp lung ronchi, dull rt base heart reg w/ pvc's, +CON, no rub abd soft, nt, nd, + bs ext min edema skin- bruises and ecchymoses neuro- a,a, o x 3 pulses + psych normal mood Data : 09/12/19 04:15 09/12/19 02:55 Micro: Microbiology 09/11/19 16:00 Gram Stain - Final Sputum - Expectorated Sputum A&P Additional A&P Information 74 yr old female 1/ copd exacerbation and possible pna as per hospitalist 2. MANISHA- from diuretics in setting of dm -likely CRS and inc lucila-i and lasix -cr stable off of lasix -urine studies noted -dec ivf -no metformin STOP LUCILA-I -NO CHF ON CXR -check in and out -check basic serologies -check spep/upep- given anemia 2b. dysuria- await renal us. f/u urine cx 3. hyperkalemia- rx medically and monitor on tele- k still high, but improving. monitor chem 7 bid 4. anemia eval- low iron sat. await ferritin Attestations Medical Necessity Statement*: severe COPD/ resp acidosis. manisha, hyperkalemia Time Spent in Patient Care: 16 - 35 minutes Coding Level of Care Code Acute [employer] Science Healer for Isidoro Randall
[2019-09-12 07:38] LABS: Glucose Point of Care 313 mg/dL (70-110)
[2019-09-12 07:38] LABS: Glucose Point of Care 258 mg/dL (70-110)
[2019-09-12 07:38] LABS: Glucose Point of Care 222 mg/dL (70-110)
[2019-09-12 07:43] LABS: Potassium 5.4 mmol/L (3.5-5.1)
[2019-09-12 08:09] LABS: Ferritin 22 ng/mL (15-150)
[2019-09-12] MEDS: budesonide 0.5 mg/2 mL Neb INHALATION ×2 (08:43→19:40)
--- NOTE | 2019-09-12 09:33 | P.PN_ITS ---
Subjective Subjective: Interval history: When asked how she is doing says that she is feeling somewhat loopy . Otherwise breathing is feeling slightly better. Vitals/I&O/Wt Last Vital Signs Temp 98.5 F 09/12/19 06:00 Pulse 86 09/12/19 08:44 Resp 20 H 09/12/19 08:44 BP 152/57 09/12/19 08:00 Pulse Ox 98 09/12/19 08:44 09/11/19 09/12/19 09/12/19 22:59 06:59 14:59 Intake Total 1680 / 1680 0.1 / 1680.1 Output Total 370 / 370 350 / 720 150 / 150 Balance 1310 / 1310 -349.9 / 960.1 -150 / -150 Weight last 48 hrs Weight 81.647 kg Physical Exam Const: COMMON NORMALS: no apparent distress and oriented x3 OTHER: Sitting up at the side of the bed. Intermittently dozing off. Oxygen saturation 98% on 3 L. HENMT: COMMON NORMALS: oropharynx normal Neck/C-Spine: COMMON NORMALS: no JVD Resp: COMMON NORMALS: normal respiratory effort AUSCULTATION: diminished lung sounds bilateral Cardio: COMMON NORMALS: no JVD, regular rhythm, S1 normal heart sound, S2 normal heart sound and no murmurs RHYTHM: regular rhythm HEART SOUNDS: S1 normal and S2 normal GI: COMMON NORMALS: normal to inspection, nondistended, normoactive bowel sounds, soft to palpation and non-tender PALPATION: Yes soft Extremity: COMMON NORMALS: no joint enlargement and no pedal edema Neuro: COMMON NORMALS: oriented x3 and moves all extremities Skin: COMMON NORMALS: no rashes or lesions noted GENERAL SKIN EXAM: no rashes or lesions noted OTHER: Dry skin bilateral lower extremities, she is scratching her legs multiple times during the visit. Multiple small ex coriations. Data : 09/12/19 04:15 09/12/19 07:06 Micro: Microbiology 09/11/19 16:00 Gram Stain - Final Sputum - Expectorated Sputum A&P Assessment and plan (1) Acute and chronic respiratory failure: Asked to have BiPAP removed. This morning intermittently drowsy. Suspect contribution from acute encephalopathy due to urinary tract infection. We will decrease her oxygen flow as she is saturating in the high 90s. Severe exacerbation of COPD, with cough, productive sputum, dyspnea. Purulent appearing sputum, continue antibiotic. Reports throat swelling and hives with penicillin, although says this was a long time ago. Encouraged her to get allergy testing with PCPs office. Continue steroid. Sputum culture. Rapid flu negative. Status: Acute Code(s): J96.20 - Acute and chronic respiratory failure, unspecified whether with hypoxia or hypercapnia (2) COPD exacerbation: As above. Status: Acute Code(s): J44.1 - Chronic obstructive pulmonary disease with (acute) exacerbation (3) Acute kidney injury: Appreciate nephrology recommendations regarding acute kidney injury. She reports using Aleve at home. Discussed with her and family to avoid further Aleve use. She is also on lisinopril, Lasix. Hold LUCILA inhibitor at this time. Monitor renal function. Status: Acute Code(s): N17.9 - Acute kidney failure, unspecified (4) Hyperkalemia: Improving. Status: Acute Code(s): E87.5 - Hyperkalemia Additional A&P Information Hepatitis C antibody positive: Incidentally noted. She reports in the past there was a question of whether antibodies may have been positive, although says on retesting were negative. She is not entirely clear in the history. She does say that in the past tested positive for hepatitis B, although her physician told her she did not have hepatitis B. UTI: Continue Levaquin. Follow-up culture. Diabetes: Continue Lantus, SSI. COPD: Follows with pulmonology, recently they have been trying to arrange for different NIPPV device. She could not afford this. Continue follow-up. OLAYINKA: On nightly CPAP at home. CAD Attestations Medical Necessity Statement*: In for assessment management of COPD exacerbation, UTI, acute kidney injury. Coding Level of Care Code Acute Senior Revenue Accountant for Isidoro Randall Diagnoses Acute and chronic respiratory failure J96.20 COPD exacerbation J44.1 Acute kidney injury N17.9 Hyperkalemia E87.5
[2019-09-12] MEDS: insulin glargine 100 units/1 mL 60 UNIT SUBCUT (09:48)
[2019-09-12] MEDS: polyethylene glycol 3350 Pkt 17 gm PO ×2 (09:48→18:48)
[2019-09-12] MEDS: aspirin 81 mg EC Tablet PO (09:49)
[2019-09-12] MEDS: citalopram 20 mg Tablet 10 MG PO (09:49)
[2019-09-12] MEDS: atorvastatin 40 mg Tablet 20 MG PO (09:49)
[2019-09-12] MEDS: sodium bicarbonate 150 MEQ in dextrose 5% 1,000 ML 100 MEQ IV (09:54)
[2019-09-12 11:31] LABS: Glucose Point of Care 326 mg/dL (70-110)
--- NOTE | 2019-09-12 12:45 | PC.NURSE ---
REPORT CALLED TO SAVITA GIMENEZ. PERSONAL BELONGINGS (PHONE, PURSE, CLOTHING) TAKEN TO ROOM 278-2 TRANSFERRED BY WHEELCHAIR W/ OXYGEN & IVF'S.
[2019-09-12 14:08] LABS: Anion Gap 19.5 (5-19); Blood Urea Nitrogen 33 mg/dL (8-23); Calcium 9.3 mg/dL (8.5-10.5); Carbon Dioxide 32 mmol/L (22-29); Chloride 91 mmol/L (98-107); Glucose 386 mg/dL (65-115); Osmolality Calculated 299 mOsm/kg (285-295); Potassium 4.5 mmol/L (3.5-5.1); Sodium 138 mmol/L (136-145)
[2019-09-12 14:36] LABS: Hepatitis B Surface AB. 263.2 (0-8.5); Hepatitis B Surface Antigen. Non-Reactive (Nonreactive)
[2019-09-12] MEDS: montelukast sodium 10 mg Tablet PO (14:53)
[2019-09-12] MEDS: enoxaparin 40 mg/0.4 mL Syringe SUBCUT (15:03)
[2019-09-12 17:15] LABS: Glucose Point of Care 244 mg/dL (70-110)
--- NOTE | 2019-09-12 21:43 | US_ITS ---
WS: [id number] RENAL ULTRASOUND Bladder ultrasound. HISTORY: nevin COMPARISON: 02/18/2018 TECHNIQUE: 2-D and color Doppler imaging of the kidney submitted. Right kidney: 9.9 cm x 5.0 cm x 5.3 cm. Normal echogenicity with no hydronephrosis or mass. Left kidney: 11.2 cm x 5.3 cm x 4.2 cm. Normal echogenicity with no hydronephrosis or mass. Aorta: Normal. Urinary Bladder: Well-distended urinary bladder. No filling defects. No free fluid. US/US renal BI with bladder IMPRESSION: Normal renal ultrasound. Negative urinary bladder ultrasound.
[2019-09-12 21:56] LABS: Glucose Point of Care 376 mg/dL (70-110)
[2019-09-12 22:24] LABS: Glucose Point of Care 289 mg/dL (70-110)
[2019-09-12] MEDS: morphine 4 mg/mL SDV 1 mL 2 MG IVP (23:01)
[2019-09-13] VITALS (14 sets, daily range): BP systolic 130–154; BP diastolic 52–67; PULSE 52–104; RESP 15–24; TEMP 36.4–36.9; O2SAT 85–95
--- NOTE | 2019-09-13 | FL_ITS ---
WS: [id number] ESOPHAGRAM TECHNIQUE: Double contrast examination was performed with thin and thick barium. Upright and SAEZ imag es were obtained. CLINICAL INFORMATION: dysphagia (food sticking in chest, also cough w food/drink) COMPARISON: None. FINDINGS: Swallowing: Normal. Esophagus: Mild dysmotility. No evidence of high-grade stricture or mass. No stricture or mass. No si gnificant hiatal hernia. Gastroesophageal reflux: None. Fluoroscopy time: 2.1 minutes. FL/FL barium swallow [id number] IMPRESSION: 1. Normal swallowing mechanism. No evidence of aspiration or penetration. 2. Mild esophageal dysmotility. No evidence of high-grade stricture or mass. 3. No significant hiatal hernia or reflux.
--- NOTE | 2019-09-13 | FL_ITS ---
WS: [id number] MODIFIED BARIUM SWALLOW TECHNIQUE: Modified barium swallow with speech therapy using multiple consistencies. FLUOROSCOPY TIME: 1.8 minutes. CLINICAL INFORMATION: Oropharyngeal dysphagia COMPARISON: None. FINDINGS: Multiple consistencies utilized. No evidence of aspiration or penetration. No difficulties with bariu m tablet. Normal modified barium swallow. FL/FL barium swallow modifd [id number] IMPRESSION: No evidence of aspiration/penetration.
[2019-09-13] MEDS: diphenhydrAMINE 25 mg Capsule PO (00:55)
[2019-09-13 03:16] LABS: Magnesium 2.3 mg/dL (1.7-2.3); Phosphorus 3.6 mg/dL (2.5-4.5)
[2019-09-13 03:35] LABS: Alanine Aminotransferase < 5 U/L (0-33); Albumin Level 3.4 g/dL (3.5-5.2); Alkaline Phosphatase 60 IU/L (35-105); Aspartate Amino Transferase 12 U/L (0-32); Blood Urea Nitrogen 29 mg/dL (8-23); Calcium 9.2 mg/dL (8.5-10.5); Carbon Dioxide 35 mmol/L (22-29); Chloride 91 mmol/L (98-107); Globulin 2.9 g/dL (1.3-4.6); Glucose 167 mg/dL (65-115); Osmolality Calculated 285 mOsm/kg (285-295); Sodium 137 mmol/L (136-145); Total Bilirubin 0.3 mg/dL (0.15-1.2); Total Protein 6.3 g/dL (6.6-8.7)
[2019-09-13] MEDS: ipratropium-albuterol 3 mL Neb INHALATION ×5 (03:36→23:55)
[2019-09-13 03:44] LABS: Hemoglobin 8.9 g/dL (11.5-15.3); Lymphocytes # 0.5 10^3/uL (0.8-4.8); Lymphocytes % 5.6 %; Mean Corpuscular HGB Conc 29.7 g/dL (30.0-36.0); Mean Corpuscular Hemoglobin 27.1 pg (28.0-34.0); Mean Corpuscular Volume 91.2 fL (81-99); Mean Platelet Volume 11.5 fL (7.4-10.4); Monocytes # 0.4 10^3/uL (0.2-0.9); Monocytes % 4.9 %; Neutrophils # 7.5 10^3/uL (1.8-7.7); Neutrophils % 88.8 %; Nucleated Red Blood Cells % 0 %; Platelet Count 244 10^3/cmm (130-400); Red Blood Count 3.29 10^6/uL (4.1-5.3); Red Cell Distribution Width 15.6 % (12.1-15.1); White Blood Count 8.4 10^3/uL (4.0-10.0)
[2019-09-13 07:00] LABS: Glucose Point of Care 250 mg/dL (70-110)
[2019-09-13] MEDS: budesonide 0.5 mg/2 mL Neb INHALATION ×2 (07:59→20:31)
--- NOTE | 2019-09-13 08:26 | P.PN_ITS ---
Subjective Subjective: Interval history: feels much better. awaiting barium swallow. no n/v/f/c/cedeno/d. chronic sob Medications: Reviewed: Yes Medication Review Details: Current Medications Acetaminophen (Tylenol) 650 mg PO Q6H PRN PRN Reason: Mild/Mod Pain Or Temp >/= 101 Albuterol/Ipratropium (Duoneb) 3 ml INHALATION Q4H.RESPIRATORY [facility] Last Admin: 09/13/19 07:59 Dose: 3 ml Documented by: Albuterol/Ipratropium (Duoneb) 3 ml INHALATION Q4H.RESPIRATORY PRN PRN Reason: SHORTNESS OF BREATH Aspirin (Aspirin Ec) 81 mg PO DAILY [facility] Last Admin: 09/12/19 09:49 Dose: 81 mg Documented by: Atorvastatin Calcium (Lipitor) 20 mg PO DAILY [facility] Last Admin: 09/12/19 09:49 Dose: 20 mg Documented by: Betamethasone Dipropionate (Diprolene) 1 applic TOPICAL BID PRN PRN Reason: prn Budesonide (Pulmicort) 0.5 mg INHALATION BID.RESPIRATORY [facility] Last Admin: 09/13/19 07:59 Dose: 0.5 mg Documented by: Citalopram Hydrobromide (Celexa) 10 mg PO DAILY [facility] Last Admin: 09/12/19 09:49 Dose: 10 mg Documented by: Dextrose (D50w) 25 ml IVP ONCE PRN; Protocol PRN Reason: hypoglycemia protocol Dextrose (D50w) 50 ml IVP PRN PRN; Protocol PRN Reason: hypoglycemia protocol Enoxaparin Sodium (Lovenox) 40 mg SUBCUT Q24H [facility] Last Admin: 09/12/19 15:03 Dose: 40 mg Documented by: Glucagon (Glucagen) 1 mg IM ONCE PRN; Protocol PRN Reason: Adult Acute Hypoglycemia Prot. Dextrose (D5w) 500 mls @ 100 mls/hr IV ONCE PRN; Protocol PRN Reason: Adult Acute Hypoglycemia Prot Sodium Bicarbonate 150 meq/ (Dextrose) 1,150 mls @ 50 mls/hr IV .Q23H [facility] Last Infusion: 09/12/19 22:30 Dose: Infused Documented by: Levofloxacin/Dextrose (Levaquin-D5w) 750 mg in 150 mls @ 150 mls/hr IV Q48H [facility]; Protocol Insulin Aspart (Novolog) 0 unit SUBCUT WM&BEDTIME [facility]; Protocol Last Admin: 09/12/19 22:23 Dose: 10 unit Documented by: Insulin Glargine (Lantus) 60 unit SUBCUT DAILY [facility] Last Admin: 09/12/19 09:48 Dose: 60 unit Documented by: Lorazepam (Ativan) 0.5 mg IVP Q4H PRN PRN Reason: ANXIETY Last Admin: 09/11/19 23:17 Dose: 0.5 mg Documented by: Methylprednisolone Sodium Succinate (Solu-Medrol) 60 mg IVP Q6H [facility] Last Admin: 09/13/19 03:02 Dose: 60 mg Documented by: Montelukast Sodium (Singulair) 10 mg PO DAILY [facility] Last Admin: 09/12/19 14:53 Dose: 10 mg Documented by: Morphine Sulfate (Morphine) 2 mg IVP Q4H PRN PRN Reason: SEVERE PAIN Last Admin: 09/12/19 23:01 Dose: 2 mg Documented by: Ondansetron HCl (Zofran) 4 mg IVP Q8H PRN PRN Reason: vomiting, or N/V if npo Polyethylene Glycol (Miralax) 17 gm PO BID [facility] Last Admin: 09/12/19 18:48 Dose: 17 gm Documented by: Vitals/I&O/Wt Last Vital Signs Temp 97.5 F L 09/13/19 07:56 Pulse 78 09/13/19 07:59 Resp 15 09/13/19 07:59 BP 132/62 09/13/19 07:56 Pulse Ox 95 09/13/19 07:59 09/12/19 09/13/19 09/13/19 22:59 06:59 14:59 Intake Total 1510 / 3081.667 Output Total 250 / 550 1250 / 1800 Balance 1260 / 2531.667 -1250 / 1281.667 Physical Exam Narrative: EXAM NARRATIVE: elderly appearing, sob w/ nc 02- looks much better. improves daily heent- nc/at, eomi, anicteric neck supple, no jvp lung ronchi b/l heart reg w/ pvc's, +CON, no rub abd soft, nt, nd, + bs ext min edema skin- bruises and ecchymoses neuro- a,a, o x 3 pulses + psych normal mood Data : 09/13/19 02:53 09/13/19 02:53 Micro: Microbiology 09/11/19 16:30 Urine Culture - Preliminary Urine,Clean Catch Gram Negative Rods 09/11/19 16:00 Gram Stain - Final Sputum - Expectorated Sputum Sputum Culture - Preliminary A&P Additional A&P Information 74 yr old female 1/ copd exacerbation and possible pna as per hospitalist 2. MANISHA- from diuretics in setting of dm -likely CRS and inc lucila-i and lasix -cr improved off of lasix -urine studies noted -d/c ivf -no metformin STOP LUCILA-I -NO CHF ON CXR -check in and out -check basic serologies -check spep/upep- given anemia 2b. dysuria- normal renal us - f/u urine cx 3. hyperkalemia- improved- low k diet. avoid lucila-i and ARB 4. anemia eval- low iron sat. and ferritin -iv iron. await spep/ upep renal will sign off. please call if we can be of further assistance. Attestations Medical Necessity Statement*: improving hyperkalemia and MANISHA Time Spent in Patient Care: 16 - 35 minutes Coding Level of Care Code Acute Dry Heat Cabinet Attendant for Isidoro Randall
[2019-09-13 09:37] LABS: PROTEIN, TOTAL 5.9 g/dL (6.1-8.1)
[2019-09-13] MEDS: atorvastatin 40 mg Tablet 20 MG PO (09:51)
[2019-09-13] MEDS: aspirin 81 mg EC Tablet PO (09:51)
[2019-09-13] MEDS: citalopram 20 mg Tablet 10 MG PO (09:51)
[2019-09-13] MEDS: montelukast sodium 10 mg Tablet PO (09:51)
[2019-09-13] MEDS: insulin glargine 100 units/1 mL 60 UNIT SUBCUT (10:07)
[2019-09-13 11:21] LABS: Anti-streptolysin O <50 IU/mL (<200)
[2019-09-13 11:23] LABS: Glucose Point of Care 238 mg/dL (70-110)
[2019-09-13 14:06] LABS: Creatinine, Random Urine 45 mg/dL (20-275); Protein, Total, Random 8 mg/dL (5-24); Protein/Creatinine Ratio 0.178 (0.021-0.161); Protein/Creatinine Ratio 178 mg/g creat (21-161)
[2019-09-13] MEDS: enoxaparin 40 mg/0.4 mL Syringe SUBCUT (14:28)
[2019-09-13 14:56] LABS: ALBUMIN 3.4 g/dL (3.8-4.8); ALPHA 1 GLOBULIN 0.3 g/dL (0.2-0.3); ALPHA 2 GLOBULIN 0.8 g/dL (0.5-0.9); BETA 1 GLOBULIN 0.5 g/dL (0.4-0.6); BETA 2 GLOBULIN 0.4 g/dL (0.2-0.5); GAMMA GLOBULIN 0.5 g/dL (0.8-1.7)
--- NOTE | 2019-09-13 15:27 | PC.RESP ---
Patient given Pulmonary Rehab/Smoking Cessation information.
[2019-09-13] MEDS: levofloxacin-dextrose 5 % 750 MG/150 ML PREMIX 150 MG IV (16:00)
[2019-09-13 17:05] LABS: Glucose Point of Care 177 mg/dL (70-110)
[2019-09-13] MEDS: polyethylene glycol 3350 Pkt 17 gm PO (18:05)
--- NOTE | 2019-09-13 19:34 | PM.PN ---
Subjective Subjective: Interval history: She is doing better overall. She is feeling stronger. Has gotten up to walk to the nursing station, although is needing 3 L of oxygen compared to her usual 2 L. We will look into preparations to go home tomorrow. Medications: Reviewed: Yes Medication Review Details: Current Medications Acetaminophen (Tylenol) 650 mg PO Q6H PRN PRN Reason: Mild/Mod Pain Or Temp >/= 101 Albuterol/Ipratropium (Duoneb) 3 ml INHALATION Q4H.RESPIRATORY [facility] Last Admin: 09/13/19 07:59 Dose: 3 ml Documented by: Albuterol/Ipratropium (Duoneb) 3 ml INHALATION Q4H.RESPIRATORY PRN PRN Reason: SHORTNESS OF BREATH Aspirin (Aspirin Ec) 81 mg PO DAILY [facility] Last Admin: 09/12/19 09:49 Dose: 81 mg Documented by: Atorvastatin Calcium (Lipitor) 20 mg PO DAILY [facility] Last Admin: 09/12/19 09:49 Dose: 20 mg Documented by: Betamethasone Dipropionate (Diprolene) 1 applic TOPICAL BID PRN PRN Reason: prn Budesonide (Pulmicort) 0.5 mg INHALATION BID.RESPIRATORY [facility] Last Admin: 09/13/19 07:59 Dose: 0.5 mg Documented by: Citalopram Hydrobromide (Celexa) 10 mg PO DAILY [facility] Last Admin: 09/12/19 09:49 Dose: 10 mg Documented by: Dextrose (D50w) 25 ml IVP ONCE PRN; Protocol PRN Reason: hypoglycemia protocol Dextrose (D50w) 50 ml IVP PRN PRN; Protocol PRN Reason: hypoglycemia protocol Enoxaparin Sodium (Lovenox) 40 mg SUBCUT Q24H [facility] Last Admin: 09/12/19 15:03 Dose: 40 mg Documented by: Glucagon (Glucagen) 1 mg IM ONCE PRN; Protocol PRN Reason: Adult Acute Hypoglycemia Prot. Dextrose (D5w) 500 mls @ 100 mls/hr IV ONCE PRN; Protocol PRN Reason: Adult Acute Hypoglycemia Prot Sodium Bicarbonate 150 meq/ (Dextrose) 1,150 mls @ 50 mls/hr IV .Q23H [facility] Last Infusion: 09/12/19 22:30 Dose: Infused Documented by: Levofloxacin/Dextrose (Levaquin-D5w) 750 mg in 150 mls @ 150 mls/hr IV Q48H SARY; Protocol Insulin Aspart (Novolog) 0 unit SUBCUT WM&BEDTIME SARY; Protocol Last Admin: 09/12/19 22:23 Dose: 10 unit Documented by: Insulin Glargine (Lantus) 60 unit SUBCUT DAILY [facility] Last Admin: 09/12/19 09:48 Dose: 60 unit Documented by: Lorazepam (Ativan) 0.5 mg IVP Q4H PRN PRN Reason: ANXIETY Last Admin: 09/11/19 23:17 Dose: 0.5 mg Documented by: Methylprednisolone Sodium Succinate (Solu-Medrol) 60 mg IVP Q6H [facility] Last Admin: 09/13/19 03:02 Dose: 60 mg Documented by: Montelukast Sodium (Singulair) 10 mg PO DAILY [facility] Last Admin: 09/12/19 14:53 Dose: 10 mg Documented by: Morphine Sulfate (Morphine) 2 mg IVP Q4H PRN PRN Reason: SEVERE PAIN Last Admin: 09/12/19 23:01 Dose: 2 mg Documented by: Ondansetron HCl (Zofran) 4 mg IVP Q8H PRN PRN Reason: vomiting, or N/V if npo Polyethylene Glycol (Miralax) 17 gm PO BID [facility] Last Admin: 09/12/19 18:48 Dose: 17 gm Documented by: Vitals/I&O/Wt Last Vital Signs Temp 97.6 F 09/13/19 15:31 Pulse 86 09/13/19 15:31 Resp 18 09/13/19 15:31 BP 136/56 09/13/19 15:31 Pulse Ox 85 L 09/13/19 16:07 09/13/19 09/13/19 09/13/19 06:59 14:59 22:59 Intake Total 240 / 240 Output Total 1250 / 1800 Balance -1250 / 1281.667 240 / 240 Physical Exam Const: COMMON NORMALS: no apparent distress and oriented x3 OTHER: Sitting up at the side of the bed. Awake, alert, lucid, conversant, with good insight. HENMT: COMMON NORMALS: oropharynx normal Neck/C-Spine: COMMON NORMALS: no JVD Resp: COMMON NORMALS: normal respiratory effort AUSCULTATION: diminished lung sounds bilateral Cardio: COMMON NORMALS: no JVD, regular rhythm, S1 normal heart sound, S2 normal heart sound and no murmurs RHYTHM: regular rhythm HEART SOUNDS: S1 normal and S2 normal GI: COMMON NORMALS: normal to inspection, nondistended, normoactive bowel sounds, soft to palpation and non-tender PALPATION: Yes soft Extremity: COMMON NORMALS: no joint enlargement and no pedal edema Neuro: COMMON NORMALS: oriented x3 and moves all extremities Skin: COMMON NORMALS: no rashes or lesions noted GENERAL SKIN EXAM: no rashes or lesions noted OTHER: Dry skin bilateral lower extremities, she is scratching her legs multiple times during the visit. Multiple small excoriations. Data : 09/13/19 02:53 09/13/19 02:53 Micro: Microbiology 09/11/19 16:00 Gram Stain - Final Sputum - Expectorated Sputum Sputum Culture - Final 09/11/19 16:30 Urine Culture - Preliminary Urine,Clean Catch Gram Negative Rods A&P Assessment and plan (1) Acute and chronic respiratory failure: Continuing to improve. Today she is lucid through the day. Asked her to get up and walk around, and did not get overly tired. We will transition her to oral medications, with tentative plans for discharge tomorrow morning. Suspect contribution from acute encephalopathy due to urinary tract infection. Avoid overly high saturations. Severe exacerbation of COPD, with cough, productive sputum, dyspnea. Purulent appearing sputum, continue antibiotic. Reports throat swelling and hives with penicillin, although says this was a long time ago. Encouraged her to get allergy testing with PCPs office. Continue steroid. Sputum culture. Rapid flu negative. Status: Acute Code(s): J96.20 - Acute and chronic respiratory failure, unspecified whether with hypoxia or hypercapnia (2) COPD exacerbation: As above. Status: Acute Code(s): J44.1 - Chronic obstructive pulmonary disease with (acute) exacerbation (3) Acute kidney injury: Resolving. Discussed with her and her daughter to avoid any NSAIDs. Discussed will hold potassium supplements, hold LUCILA inhibitor. Discussed she should have follow-up on renal function with her primary care provider. They verbalized understanding. She reports using Aleve at home. Discussed with her and family to avoid further Aleve use. She is also on lisinopril, Lasix. Status: Acute Code(s): N17.9 - Acute kidney failure, unspecified (4) Hyperkalemia: Resolved. Status: Acute Code(s): E87.5 - Hyperkalemia Additional A&P Information Hepatitis C antibody positive: Incidentally noted. She reports in the past there was a question of whether antibodies may have been positive, although says on retesting were negative. She is not entirely clear in the history. She does say that in the past tested positive for hepatitis B, although her physician told her she did not have hepatitis B. UTI: Continue Levaquin. Follow-up culture. Diabetes: Continue Lantus, SSI. COPD: Follows with pulmonology, recently they have been trying to arrange for different NIPPV device. She could not afford this. Continue follow-up. OLAYINKA: On nightly CPAP at home. CAD Attestations Medical Necessity Statement*: Continue admission for optimization of medical management of COPD with exacerbation, resolving acute kidney injury, preparation for discharge. 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
[2019-09-13 21:06] LABS: Glucose Point of Care 364 mg/dL (70-110)
[2019-09-13] MEDS: predniSONE 20 mg Tablet 40 MG PO (21:17)
[2019-09-14] VITALS (9 sets, daily range): BP systolic 135–138; BP diastolic 57–74; PULSE 72–98; RESP 18–22; TEMP 36.6–36.9; O2SAT 90–96
[2019-09-14] MEDS: acetaminophen 325 mg Tablet 650 MG PO (00:10)
[2019-09-14] MEDS: ipratropium-albuterol 3 mL Neb INHALATION ×2 (04:13→07:51)
[2019-09-14 06:26] LABS: Basophils % 0.1 %; Hematocrit 32.7 % (37.0-47.0); Hemoglobin 9.6 g/dL (11.5-15.3); Lymphocytes # 0.5 10^3/uL (0.8-4.8); Lymphocytes % 6.4 %; Mean Corpuscular HGB Conc 29.4 g/dL (30.0-36.0); Mean Corpuscular Hemoglobin 26.8 pg (28.0-34.0); Mean Corpuscular Volume 91.3 fL (81-99); Mean Platelet Volume 11.4 fL (7.4-10.4); Monocytes # 0.5 10^3/uL (0.2-0.9); Monocytes % 6.7 %; Neutrophils # 6.9 10^3/uL (1.8-7.7); Neutrophils % 85.2 %; Nucleated Red Blood Cells % 0 %; Platelet Count 260 10^3/cmm (130-400); Red Blood Count 3.58 10^6/uL (4.1-5.3); Red Cell Distribution Width 15.3 % (12.1-15.1); White Blood Count 8.1 10^3/uL (4.0-10.0)
[2019-09-14 06:52] LABS: Alanine Aminotransferase 6 U/L (0-33); Albumin Level 3.4 g/dL (3.5-5.2); Alkaline Phosphatase 60 IU/L (35-105); Aspartate Amino Transferase 13 U/L (0-32); Blood Urea Nitrogen 33 mg/dL (8-23); Calcium 9.5 mg/dL (8.5-10.5); Carbon Dioxide 34 mmol/L (22-29); Chloride 94 mmol/L (98-107); Globulin 2.9 g/dL (1.3-4.6); Glucose 252 mg/dL (65-115); Osmolality Calculated 292 mOsm/kg (285-295); Sodium 138 mmol/L (136-145); Total Bilirubin 0.3 mg/dL (0.15-1.2); Total Protein 6.3 g/dL (6.6-8.7)
[2019-09-14 06:54] LABS: Magnesium 2.4 mg/dL (1.7-2.3); Phosphorus 3.1 mg/dL (2.5-4.5)
[2019-09-14 06:56] LABS: Glucose Point of Care 262 mg/dL (70-110)
[2019-09-14] MEDS: budesonide 0.5 mg/2 mL Neb INHALATION (07:52)
[2019-09-14 09:07] LABS: Albumin,Urine Random 100 %; Alpha-1-Globulins Urine Random 0 %; Alpha-2-Globulins Urine Random 0 %; Beta-Globulin,Urine Random 0 %; Gamma Globulin,Urine Random 0 %
[2019-09-14] MEDS: montelukast sodium 10 mg Tablet PO (09:24)
[2019-09-14] MEDS: atorvastatin 40 mg Tablet 20 MG PO (09:24)
[2019-09-14] MEDS: predniSONE 20 mg Tablet 40 MG PO (09:24)
[2019-09-14] MEDS: citalopram 20 mg Tablet 10 MG PO (09:24)
[2019-09-14] MEDS: aspirin 81 mg EC Tablet PO (09:25)
--- NOTE | 2019-09-14 09:49 | P.DS_ITS ---
Discharge Providers Date of Admission: 09/11/19 11:43 Date of Discharge: September 14, 2019 Attending Provider at Admission: Mike Ramos Attending Provider at Discharge: Mike Ramos Primary Care Provider: Victorino Francis MD Diagnoses at Discharge Discharge Diagnosis (1) Acute and chronic respiratory failure: Status: Acute (2) COPD exacerbation: Status: Acute (3) Acute kidney injury: Status: Acute (4) Hyperkalemia: Status: Acute Reason for Visit Reason for Visit: Reason For Visit: SOB Hospital Course Hospital Course: 74-year-old pleasant lady with history of COPD was admitted due to acute COPD exacerbation, with confusion on presentation, also noted acute kidney injury, hyperkalemia. Initially with lack of improvement in ABG despite BiPAP support, was admitted to ICU for treatment with IV steroid, antibiotics, breathing treatments, continued BiPAP, was also noted with UTI for which started on treatment, likely contributing to her acute encephalopathy on presentation, perhaps hypercapnia. Urine culture so far growing E. coli, sensitive to quinolones, will complete course with Levaquin. On presentation due to hyperkalemia received treatment with gradual improvement. Acute kidney injury improved. Potassium supplements discontinued. Lisinopril at this time is not continued, and due to history of NSAID intake she was counseled to avoid these medications. Please reassess her renal function, resume LUCILA inhibitor as appropriate. On work-up by nephrology incidentally noted hepatitis C antibody positive. She endorses history of questionable hepatitis B in the past, although says was previously confirmed by her primary care provider not to have chronic infection. She was not aware about hepatitis C. Please follow-up additional investigations to exclude chronic hepatitis for which she may need treatment. Discussed with her and she verbalized understanding. Physical Exam Const: COMMON NORMALS: no apparent distress and oriented x3 OTHER: She is feeling well. In good spirits. HENMT: COMMON NORMALS: oropharynx normal Neck/C-Spine: COMMON NORMALS: no JVD Resp: COMMON NORMALS: normal respiratory effort AUSCULTATION: diminished lung sounds bilateral Cardio: COMMON NORMALS: no JVD, regular rhythm, S1 normal heart sound, S2 normal heart sound and no murmurs RHYTHM: regular rhythm HEART SOUNDS: S1 normal and S2 normal GI: COMMON NORMALS: normal to inspection, nondistended, normoactive bowel sounds, soft to palpation and non-tender PALPATION: Yes soft Extremity: COMMON NORMALS: no joint enlargement and no pedal edema NARRATIVE EXTREMITY EXAM: Dopplerable PT and DP pulses bilaterally. Neuro: COMMON NORMALS: oriented x3 and moves all extremities Skin: COMMON NORMALS: no rashes or lesions noted GENERAL SKIN EXAM: no rashes or lesions noted OTHER: Dry skin bilateral lower extremities, she is scratching her legs multiple times during the visit. Multiple small excoriations. Discharge Data Data Completed and Pending: Completed Studies During Hospitalization Category Date Time Status FL barium swallow 08959 Routine Exams 09/13/19 Completed FL barium swallow modifd 20975 Rout ine Exams 09/13/19 Completed XR chest 1V wild ble 53601 Urgent Exams 09/11/19 06:33 Completed US renal BI with bladder Routine Ultrasound 09/12/19 21:43 Completed Pending at discharge Category Date Time Status Anti-Neutrophil C utoplasmic AB Rout ine Lab 09/11/19 22:05 Received BMP [Basic Met[employer] lic Panel] AM LABS Lab 09/15/19 04:00 Ordered Complete Blood Co unt w/Auto AM LABS Lab 09/15/19 04:00 Ordered Homer Free Light Chains Urine Stat Lab 09/11/19 01:20 Received Urine Culture Rou francesca Lab 09/11/19 16:30 Results Labs from last 24 hours 09/14/19 09/14/19 09/14/19 06:51 06:00 06:00 WBC 8.1 RBC 3.58 L Hgb 9.6 L Hct 32.7 L MCV 91.3 MCH 26.8 L MCHC 29.4 L RDW 15.3 H Plt Count 260 MPV 11.4 H Neut % (Auto) 85.2 Lymph % (Auto) 6.4 [place] % (Auto) 6.7 Eos % (Auto) 0.0 Baso % (Auto) 0.1 Neut # (Auto) 6.9 Lymph # (Auto) 0.5 L [place] # (Auto) 0.5 Eos # (Auto) 0.0 Baso # (Auto) 0.0 Nucleated RBC % (a uto) 0 Nucleated RBCs # 0.0 Sodium Potassium Chloride Carbon Dioxide Anion Gap BUN Creatinine Glucose POC Glucose 262 Calculated Osmolal ity Calcium Phosphorus 3.1 Magnesium 2.4 H Total Bilirubin AST ALT Alkaline Phosphata se Total Protein Albumin Globulin Qinzk-2-Fdvhiuyht Vkmtj-5-Udtbxgtfx Sosu-6-Mhdjddqe Pbvy-8-Wyhmqbvt Gamma Globulins Ur Random Creatini ne Ur Random Albumin U Random Total Pro tein Protein/Creatinin Ratio Protein/Creat Rati o 24h U Random a-1-Globu john % U Random a-2-Globu john % U Random Beta Glob ulin U Random Gamma [place] b Urine PEP Interpre t Pro Electrophoresi s Int Serum Immunofixati on Anti-Streptolysin O Ab 09/14/19 09/13/19 09/13/19 06:00 21:03 16:55 WBC RBC Hgb Hct MCV MCH MCHC RDW Plt Count MPV Neut % (Auto) Lymph % (Auto) [place] % (Auto) Eos % (Auto) Baso % (Auto) Neut # (Auto) Lymph # (Auto) [place] # (Auto) Eos # (Auto) Baso # (Auto) Nucleated RBC % (a uto) Nucleated RBCs # Sodium 138 Potassium 4.0 Chloride 94 L Carbon Dioxide 34 H Anion Gap 14.0 BUN 33 H Creatinine 1.3 H Glucose 252 H POC Glucose 364 177 Calculated Osmolal ity 292 Calcium 9.5 Phosphorus Magnesium Total Bilirubin 0.3 AST 13 ALT 6 Alkaline Phosphata se 60 Total Protein 6.3 L Albumin 3.4 L Globulin 2.9 Eomdu-2-Vvdizgiaq Skbyf-5-Briaivtxp Sxny-7-Mcrkegss Xzpe-9-Ysspglvt Gamma Globulins Ur Random Creatini ne Ur Random Albumin U Random Total Pro tein Protein/Creatinin Ratio Protein/Creat Rati o 24h U Random a-1-Globu john % U Random a-2-Globu john % U Random Beta Glob ulin U Random Gamma [place] b Urine PEP Interpre t Pro Electrophoresi s Int Serum Immunofixati on Anti-Streptolysin O Ab 09/13/19 09/12/19 09/11/19 11:12 02:55 22:05 WBC RBC Hgb Hct MCV MCH MCHC RDW Plt Count MPV Neut % (Auto) Lymph % (Auto) [place] % (Auto) Eos % (Auto) Baso % (Auto) Neut # (Auto) Lymph # (Auto) [place] # (Auto) Eos # (Auto) Baso # (Auto) Nucleated RBC % (a uto) Nucleated RBCs # Sodium Potassium Chloride Carbon Dioxide Anion Gap BUN Creatinine Glucose POC Glucose 238 Calculated Osmolal ity Calcium Phosphorus Magnesium Total Bilirubin AST ALT Alkaline Phosphata se Total Protein Albumin 3.4 L Globulin Bsotn-6-Jycbwnvxv 0.3 Yxbru-5-Lywvbyzzj 0.8 Tdjb-8-Tssicbqm 0.5 Hykh-1-Gnkiwoik 0.4 Gamma Globulins 0.5 L Ur Random Creatini ne Ur Random Albumin U Random Total Pro tein Protein/Creatinin Ratio Protein/Creat Rati o 24h U Random a-1-Globu john % U Random a-2-Globu john % U Random Beta Glob ulin U Random Gamma [place] b Urine PEP Interpre t Pro Electrophoresi s Int See note Serum Immunofixati on Anti-Streptolysin O Ab <50 09/11/19 09/11/19 22:05 01:20 WBC RBC Hgb Hct MCV MCH MCHC RDW Plt Count MPV Neut % (Auto) Lymph % (Auto) [place] % (Auto) Eos % (Auto) Baso % (Auto) Neut # (Auto) Lymph # (Auto) [place] # (Auto) Eos # (Auto) Baso # (Auto) Nucleated RBC % (a uto) Nucleated RBCs # Sodium Potassium Chloride Carbon Dioxide Anion Gap BUN Creatinine Glucose POC Glucose Calculated Osmolal ity Calcium Phosphorus Magnesium Total Bilirubin AST ALT Alkaline Phosphata se Total Protein Albumin Globulin Iirfz-0-Bbwqlkygz Riisv-1-Ljclejclj Plhj-0-Hupmqivb Gdjl-0-Uwkkfqgj Gamma Globulins Ur Random Creatini ne 45 Ur Random Albumin 100 U Random Total Pro tein 8 Protein/Creatinin Ratio 178 H Protein/Creat Rati o 24h 0.178 H U Random a-1-Globu john % 0 U Random a-2-Globu john % 0 U Random Beta Glob ulin 0 U Random Gamma [place] b 0 Urine PEP Interpre t See note Pro Electrophoresi s Int Serum Immunofixati on See note Anti-Streptolysin O Ab Vitals: Last Vital Signs Temp 98.5 F 09/14/19 08:00 Pulse 84 09/14/19 08:07 Resp 18 09/14/19 08:00 BP 135/74 09/14/19 08:00 Pulse Ox 96 09/14/19 08:00 Discharge Plan Discharge Patient Disposition: Home Health Service Condition: Stable Prescriptions: New prednisone 20 mg tablet See Rx Instructions .ROUTE .COMPLEX Qty: 20 RF: 0 levofloxacin [Levaquin] 750 mg tablet 750 mg PO Q48H Qty: 3 RF: 0 Continued Spiriva with HandiHaler 18 mcg capsule, w/inhalation device 1 cap INHALATION DAILY RF: 0 furosemide 40 mg tablet 80 mg PO QAM RF: 0 nitroglycerin [Nitrostat] 0.4 mg tablet, sublingual 0.4 mg SUBLINGUAL Q5M PRN (Reason: Chest Pain) RF: 0 aspirin [Adult Aspirin Regimen] 81 mg tablet,delayed release (DR/EC) 81 mg PO DAILY RF: 0 Lantus Solostar U-100 Insulin 100 unit/mL (3 mL) insulin pen 60 unit SUBCUT DAILY RF: 0 insulin lispro [Humalog KwikPen Insulin] 100 unit/mL insulin pen See Rx Instructions SUBCUT TID RF: 0 Januvia 100 mg tablet 100 mg PO DAILY RF: 0 citalopram 10 mg tablet 10 mg PO DAILY RF: 0 montelukast [Singulair] 10 mg tablet 10 mg PO DAILY RF: 0 metformin 1,000 mg tablet 1,000 mg PO BID RF: 0 pravastatin 20 mg tablet 20 mg PO DAILY RF: 0 Symbicort 160-4.5 mcg/actuation HFA aerosol inhaler 2 puff INHALATION BID RF: 0 betamethasone dipropionate 0.05 % cream 1 applic TOPICAL BID PRN (Reason: prn) RF: 0 albuterol sulfate [ProAir HFA] 90 mcg/actuation HFA aerosol inhaler 2 puff INHALATION Q6H PRN (Reason: Shortness Of Breath) RF: 0 albuterol sulfate 0.63 mg/3 mL solution for nebulization See Rx Instructions .ROUTE .COMPLEX PRN (Reason: Shortness Of Breath) RF: 0 budesonide [Pulmicort] 0.5 mg/2 mL suspension for nebulization 0.5 mg INHALATION Q12H Qty: 120 RF: 3 Perforomist 20 mcg/2 mL solution for nebulization 2 ml INHALATION Q12H 30 Days Qty: 120 RF: 3 revefenacin 175 mcg/3 mL solution for nebulization 175 mcg INHALATION DAILY 30 Days Qty: 90 RF: 3 Discontinued potassium chloride 10 mEq capsule, extended release 10 meq PO DAILY RF: 0 lisinopril 20 mg tablet 20 mg PO DAILY RF: 0 Discharge Orders: Discharge Order (Routine); Ordered 09/14/19 Ordered By: Mike Ramos Referrals: [facility] [Outside] [facility] [Outside] Victorino Francis MD [Primary Care Provider] - 4-7 days (Follow-up on COPD sedation, renal function, hyperkalemia, positive hepatitis C antibody, consider penicillin sensitivity testing) Discharge Diet: Diabetic Discharge Activity: Oxygen as instructed Activity Restrictions/Additional Instructions: Continue oxygen at 3L targeting saturation 88-92%. Avoid any NSAIDs like Aleve, ibuprofen, etc. Do not take anymore potassium supplements. For now your lisinopril is held until your kidney function is confirmed by her primary care provider to be stable. Please discuss with your primary care doctor regarding hepatitis C additional testing due to positive hepatitis C antibody. 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
--- NOTE | 2019-09-14 10:19 | PC.SOCIAL ---
Important Medicare Message Reviewed page 2 of Important Medicare Message with patient, verbalized understanding and signed page 2. Was provided with information for [employer], phone number [phone]. Original to patient and copy in chart.
[2019-09-15 12:15] LABS: ANCA Interp Negative (Negative)
== END 2019-09-14 10:45 | disposition home health service (06) | DRG 189 ==
LOC: ER 06:39 → ICU 13:07 → MEDSURG 09-12 12:52
PROVIDERS: Internal Medicine Nephrology; Admitting Provider Internal Medicine; Emergency Provider Family Medicine; Family Provider Family Medicine; PCP Family Medicine; Visit Provider Internal Medicine
DX: J96.20 Acute and chronic respiratory failure, unspecified whether with hypoxia or hypercapnia (principal); J44.1 Chronic obstructive pulmonary disease with (acute) exacerbation; N17.9 Acute kidney failure, unspecified; N39.0 Urinary tract infection, site not specified; G93.40 Encephalopathy, unspecified; E87.5 Hyperkalemia; B19.20 Unspecified viral hepatitis C without hepatic coma; F17.210 Nicotine dependence, cigarettes, uncomplicated; E11.9 Type 2 diabetes mellitus without complications; G47.33 Obstructive sleep apnea (adult) (pediatric); I25.10 Atherosclerotic heart disease of native coronary artery without angina pectoris; D64.9 Anemia, unspecified; B96.20 Unspecified Escherichia coli [E. coli] as the cause of diseases classified elsewhere; Z79.51 Long term (current) use of inhaled steroids; Z79.82 Long term (current) use of aspirin; Z79.2 Long term (current) use of antibiotics; Z79.84 Long term (current) use of oral hypoglycemic drugs
CPT/HCPCS: 12345; 36415; 36416; 36600; 71045; 74220; 74230; 76770; 76857; 80048; 80051; 80053; 81001; 82550; 82728; 82810; 82962; 83516; 83540; 83550; 83735; 83883; 83986; 84100; 84132; 84155; 84156; 84165; 84260; 85025; 85999; 86060; 86335; 86705; 86706; 86803; 87070; 87077; 87086; 87186; 87205; 87340; 87804; 92610; 92611; 94640; 94660; 96372; 96374; 96375; 97116; 97162; 99283; J0610; J1650; J1815; J1940; J1956; J2060; J2270; J2930; J7040; J7512; J7611; J7626; J7799; Q3014

== ENCOUNTER 2019-11-06 14:14 | Emergency (ER) | payer MEDICARE, SELFPAY ==
[2019-11-06 14:34] VITALS: BP 159/89; PULSE 74; RESP 22; TEMP 37.1; O2SAT 98; BMI 33.1
--- NOTE | 2019-11-06 15:41 | W.ED.SOB ---
Documented by User: Iván Nation DO 11/08/19 14:21 HPI - SOB/Dyspnea General: Chief Complaint: Shortness of Breath/Dyspnea Stated Complaint: sob Time Seen by Provider: 11/06/19 14:35 History of Present Illness: HPI Narrative: 74 yo female presents the emergency room with shortness of breath x1 week. She is usually in oxygen for COPD normally uses 3 L/min by nasal cannula. Over the last week she has had increasing shortness of breath and has increased her oxygen to 4 L/min. She has had a slight change in character of sputum is become darker but the volume that she has is essentially normal per her report. She denies any fevers or fever. She denies any chest pain she has no history of DVT or PE. She notices increasing shortness of breath especially with activity she states she is much more short of breath than she normally is with routine daily activities. She denies vomiting or diarrhea she is not been around anyone that she is aware of that is tested positive for COVID-19, she states she has been very careful to quarantine herself since the onset of the pandemic. Associated symptoms: Deny abdominal pain, chest pain, fever(s), nausea, orthopnea or vomiting Review of Systems Const: Denies: fever, chills, body aches, change in appetite, fatigue or malaise ENMT: Denies: throat pain, ear pain, nasal discharge or nasal congestion Card: Denies: chest pain, edema, shortness of breath on exertion or shortness of breath when lying down Resp: Reports: shortness of breath and productive cough; Denies: non-productive cough GI: Denies: abdominal pain, nausea, vomiting, vomiting blood, coffee grounds in vomit, diarrhea, constipation, bloating, blood in stool or black tarry stool : Denies: flank pain, difficulty urinating, painful urination, urinary frequency or urinary urgency Skin/Breast: Denies: rash or itching PFSH ED PFSH: Social History Smoking and tobacco status: former smoker Quit status (tobacco): has quit using tobacco Year quit tobacco: 2020 - 0.5 PPD x 55 Years Alcohol intake: never Lives independently: Yes Household members: none Housing: Apartment Current occupational status: retired and disabled History of recent travel: No Current gender identity: Female Physical Exam Const: COMMON NORMALS: no apparent distress GENERAL APPEARANCE: cooperative and comfortable ORIENTATION/CONSCIOUSNESS: Yes awake, Yes oriented to person, Yes oriented to place and Yes oriented to time HENMT: COMMON NORMALS: normocephalic, head/scalp atraumatic, hearing grossly normal bilaterally, external ears normal, EAC's normal, TM's normal bilaterally, nasal mucous membranes and turbinates normal, moist oral mucous membranes and oropharynx normal HEAD & SCALP: normocephalic and atraumatic NOSE: nasal mucous membranes and turbinates normal EXTERNAL EAR: Yes external ears normal EXTERNAL AUDITORY CANAL: EAC's normal TYMPANIC MEMBRANE: TM's normal bilaterally Eye: COMMON NORMALS: PERRL, EOMs intact bilaterally, conjunctivae normal and no scleral icterus CONJUNCTIVA: Yes conjunctivae normal PUPIL: Yes PERRL Neck/C-Spine: COMMON NORMALS: full ROM, no lymphadenopathy, supple and no JVD Lymph: LYMPHATIC: no lymphadenopathy noted and no lymphedema noted Resp: COMMON NORMALS: normal respiratory effort, no retractions, no use of accessory muscles and clear to auscultation bilaterally AUSCULTATION: clear to auscultation bilaterally Cardio: COMMON NORMALS: no JVD, regular rate, regular rhythm and no murmurs RATE: regular rate RHYTHM: regular rhythm GI: COMMON NORMALS: soft to palpation and no hepatosplenomegaly AUSCULTATION: Yes normoactive bowel sounds PALPATION: Yes soft, No tender, No guarding and Yes no hepatosplenomegaly Extremity: COMMON NORMALS: normal to inspection, normal capillary refill, no clubbing, cyanosis or edema, no calf tenderness and no pedal edema Neuro: SENSORIUM/ORIENTATION: Yes oriented to person, Yes oriented to place and Yes oriented to time Skin: COMMON NORMALS: no rashes or lesions noted GENERAL SKIN EXAM: no rashes or lesions noted Course Vital Signs: Vital signs: Vital Signs Temperature 98.8 F 11/06/19 14:34 Pulse Rate 75 11/06/19 19:01 Respiratory Rate 16 11/06/19 19:01 Blood Pressure 125/85 11/06/19 19:01 Pulse Oximetry 97 11/06/19 19:01 MDM - SOB/Dyspnea MDM Narrative: Medical decision making narrative: Patient appears to have a moderate COPD exacerbation labs are pending care turned over to Dr. Pugh at change of shift. Lab Data: Labs: Lab Results 11/06/19 11/06/19 11/06/19 Range/Units 15:23 16:24 16:24 WBC 9.2 (4.0-10.0) 10^3/ uL RBC 3.84 L (4.1-5.3) 10^6/u L Hgb 9.9 L (11.5-15.3) g/dL Hct 34.5 L (37.0-47.0) % MCV 89.8 (81-99) fL MCH 25.8 L (28.0-34.0) pg MCHC 28.7 L (30.0-36.0) g/dL RDW 13.9 (12.1-15.1) % Plt Count 235 (130-400) 10^3/c mm MPV 11.4 H (7.4-10.4) fL Neut % (Auto) 76.2 % Lymph % (Auto) 13.8 % [place] % (Auto) 5.3 % Eos % (Auto) 3.7 % Baso % (Auto) 0.5 % Neut # (Auto) 7.0 (1.8-7.7) 10^3/u L Lymph # (Auto) 1.3 (0.8-4.8) 10^3/u L [place] # (Auto) 0.5 (0.2-0.9) 10^3/u L Eos # (Auto) 0.3 (0.0-0.8) 10^3/u L Baso # (Auto) 0.1 (0.0-0.1) 10^3/u L Nucleated RBC % (a uto) 0 % Nucleated RBCs # 0.0 /100WBC Specimen Type Sample Site ABG pH (7.35-7.45) ABG pCO2 (35-45) mmHg ABG pO2 (80.0-100.0) mmH g ABG HCO3 (22-26) mmol/L ABG O2 Saturation ABG Base Excess (-2.0-2.0) mmol/ L Kike Test Hematocrit (37-47) % Hgb O2 Saturation (95-100) % Carboxyhemoglobin (0.4-20.1) %THgb Methemoglobin (0.4-1.5) % Total Hemoglobin (12-16) g/dL Ionized Calcium (1.1-1.4) mmol/L O2 Delivery Device O2 Liters/Min % Python Web Developer ID Sodium 142 (136-145) mmol/L Potassium 4.4 (3.5-5.1) mmol/L Chloride 98 (98-107) mmol/L Carbon Dioxide 36 H (22-29) mmol/L Anion Gap 12.4 (5-19) BUN 13 (8-23) mg/dL Creatinine 0.9 (0.5-0.9) mg/dL Glucose 152 H (65-115) mg/dL Calculated Osmolal ity 293 (285-295) mOsm/k g Calcium 10.1 (8.5-10.5) mg/dL Total Bilirubin 0.4 (0.15-1.2) mg/dL AST 12 (0-32) U/L ALT < 5 (0-33) U/L Alkaline Phosphata se 77 (35-105) IU/L Troponin T Baselin e (0-10) ng/mL Troponin T 120 Min [place] (0-10) ng/mL Delta Troponin T (0-10) ABS# Total Protein 6.4 L (6.6-8.7) g/dL Albumin 3.8 (3.5-5.2) g/dL Globulin 2.6 (1.3-4.6) g/dL Urine Color Yellow (Yellow) Urine Appearance Clear (CLEAR) Urine pH 5 (5-7) Ur Specific Gravit y 1.020 (1.005-1.030) Urine Protein Neg (Negative) Urine Glucose (UA) Trace H (Normal) Urine Ketones Negative (Negative) Urine Blood Neg (Negative) Urine Nitrate Negative (Negative) Urine Bilirubin Neg (NEGATIVE) Urine Urobilinogen Norm (Negative) mg/dL Ur Leukocyte Brianna ase Negative (Negative) 11/06/19 11/06/19 11/06/19 Range/Units 16:24 17:30 18:11 WBC (4.0-10.0) 10^3/ uL RBC (4.1-5.3) 10^6/u L Hgb (11.5-15.3) g/dL Hct (37.0-47.0) % MCV (81-99) fL MCH (28.0-34.0) pg MCHC (30.0-36.0) g/dL RDW (12.1-15.1) % Plt Count (130-400) 10^3/c mm MPV (7.4-10.4) fL Neut % (Auto) % Lymph % (Auto) % [place] % (Auto) % Eos % (Auto) % Baso % (Auto) % Neut # (Auto) (1.8-7.7) 10^3/u L Lymph # (Auto) (0.8-4.8) 10^3/u L [place] # (Auto) (0.2-0.9) 10^3/u L Eos # (Auto) (0.0-0.8) 10^3/u L Baso # (Auto) (0.0-0.1) 10^3/u L Nucleated RBC % (a uto) % Nucleated RBCs # /100WBC Specimen Type Arterial Sample Site Radial, left ABG pH 7.40 (7.35-7.45) ABG pCO2 55.8 H (35-45) mmHg ABG pO2 88.0 (80.0-100.0) mmH g ABG HCO3 34.7 H (22-26) mmol/L ABG O2 Saturation 97.5 ABG Base Excess 8.4 H (-2.0-2.0) mmol/ L Kike Test Pos Hematocrit 36.2 L (37-47) % Hgb O2 Saturation 96.0 (95-100) % Carboxyhemoglobin 0.7 (0.4-20.1) %THgb Methemoglobin 0.9 (0.4-1.5) % Total Hemoglobin 11.8 L (12-16) g/dL Ionized Calcium 1.2 (1.1-1.4) mmol/L O2 Delivery Device Nc O2 Liters/Min 5.0 % Python Web Developer ID [id number] Sodium 144.0 H (136-145) mmol/L Potassium 4.0 (3.5-5.1) mmol/L Chloride (98-107) mmol/L Carbon Dioxide (22-29) mmol/L Anion Gap (5-19) BUN (8-23) mg/dL Creatinine (0.5-0.9) mg/dL Glucose 179.0 H (65-115) mg/dL Calculated Osmolal ity (285-295) mOsm/k g Calcium (8.5-10.5) mg/dL Total Bilirubin (0.15-1.2) mg/dL AST (0-32) U/L ALT (0-33) U/L Alkaline Phosphata se (35-105) IU/L Troponin T Baselin e 11 H (0-10) ng/mL Troponin T 120 Min [place] 11.32 H (0-10) ng/mL Delta Troponin T 0.32 (0-10) ABS# Total Protein (6.6-8.7) g/dL Albumin (3.5-5.2) g/dL Globulin (1.3-4.6) g/dL Urine Color (Yellow) Urine Appearance (CLEAR) Urine pH (5-7) Ur Specific Gravit y (1.005-1.030) Urine Protein (Negative) Urine Glucose (UA) (Normal) Urine Ketones (Negative) Urine Blood (Negative) Urine Nitrate (Negative) Urine Bilirubin (NEGATIVE) Urine Urobilinogen (Negative) mg/dL Ur Leukocyte Brianna ase (Negative) Discharge Plan Discharge Patient Disposition: Home, Self-Care Clinical Impression: Acute exacerbation of chronic obstructive airways disease Condition: Stable Prescriptions: New doxycycline hyclate 100 mg capsule 100 mg PO BID 10 Days Qty: 20 RF: 0 prednisone 10 mg tablets,dose pack See Rx Instructions .ROUTE .COMPLEX Qty: 21 RF: 0 No Action furosemide 40 mg tablet 80 mg PO QAM RF: 0 nitroglycerin [Nitrostat] 0.4 mg tablet, sublingual 0.4 mg SUBLINGUAL Q5M PRN (Reason: Chest Pain) RF: 0 aspirin [Adult Aspirin Regimen] 81 mg tablet,delayed release (DR/EC) 81 mg PO DAILY RF: 0 Lantus Solostar U-100 Insulin 100 unit/mL (3 mL) insulin pen 60 unit SUBCUT QPM RF: 0 insulin lispro [Humalog KwikPen Insulin] 100 unit/mL insulin pen See Rx Instructions .ROUTE .COMPLEX RF: 0 Januvia 100 mg tablet 100 mg PO DAILY RF: 0 citalopram 10 mg tablet 10 mg PO DAILY RF: 0 montelukast [Singulair] 10 mg tablet 10 mg PO DAILY RF: 0 pravastatin 20 mg tablet 20 mg PO DAILY RF: 0 albuterol sulfate [ProAir HFA] 90 mcg/actuation HFA aerosol inhaler 2 puff INHALATION Q6H PRN (Reason: Shortness Of Breath) RF: 0 ipratropium-albuterol 0.5 mg-3 mg(2.5 mg base)/3 mL solution for nebulization 3 ml INHALATION QID PRN (Reason: wheezing) 90 Days Qty: 360 RF: 3 budesonide [Pulmicort] 0.5 mg/2 mL suspension for nebulization 0.5 mg INHALATION Q12H Qty: 120 RF: 3 albuterol sulfate 2.5 mg /3 mL (0.083 %) solution for nebulization 2.5 mg inhalation BID PRN (Reason: unknown) RF: 0 Ozempic 0.25 mg or 0.5 mg(2 mg/1.5 mL) pen injector 0.25 mg SUBCUT Q7D RF: 0 Discharge Orders: Discharge Order (Routine); Ordered 11/06/19 Ordered By: Mamie Barrett Referrals: Victorino Francis MD [Primary Care Provider] - Discharge Diet: Advance as tolerated Discharge Activity: Increase activity as tolerated Patient Instructions: Chronic Obstructive Pulmonary Disease (ED) Activity Restrictions/Additional Instructions: Please return to the ER immediately for any of the signs or symptoms listed on your discharge instruction sheets, worsening/changing of your symptoms, you are not getting better as quickly as expected, or for ANY other cause or concerns. Your EKG was abnormal and I have advised further evaluation and care of your heart to include more blood testing but you have declined. If you change your mind and want more evaluation of your heart you are more than welcome to return to the ER at any time. Take your antibiotics and steroids as I have discussed. Use your inhaler every 4 hours as needed along with your regular breathing treatments. Discharge Date/Time: 11/06/19 19:01 Coding Level of Care Code ED Peanut Farmer for Chg Fwd Exam Comprehensive Documented by User: Mamie Barrett 11/06/19 20:54 HPI - SOB/Dyspnea General: Chief Complaint: Shortness of Breath/Dyspnea Stated Complaint: sob Time Seen by Provider: 11/06/19 14:35 PFSH ED PFSH: Social History Smoking and tobacco status: former smoker Quit status (tobacco): has quit using tobacco Year quit tobacco: 2020 - 0.5 PPD x 55 Years Alcohol intake: never Lives independently: Yes Household members: none Housing: Apartment Current occupational status: retired and disabled History of recent travel: No Current gender identity: Female Course Vital Signs: Vital signs: Vital Signs Temperature 98.8 F 11/06/19 14:34 Pulse Rate 75 11/06/19 19:01 Respiratory Rate 16 11/06/19 19:01 Blood Pressure 125/85 11/06/19 19:01 Pulse Oximetry 97 11/06/19 19:01 MDM - SOB/Dyspnea MDM Narrative: Medical decision making narrative: 1833 -Case turned over to me at change of shift from Dr. Nation. Please see his note for his history, physical exam and medical decision-making notes. Patient endorsed to me is a mild to moderate COPD exacerbation. Patient with no chest pain and no fever. On my examination the patient is moving air well with minimal wheezing. She states overall she feels much better. I have informed her her troponin was only slightly out of range but she states that she wants to go home. She declines any further evaluation or care. She is requesting steroids and antibiotics that she says that is what helps her breathing the most. I will go and discharge the patient home and have her return if her symptoms change or worsen. Patient's EKGs were slightly abnormal but unchanged from her previous. Lab Data: Labs: Lab Results 11/06/19 11/06/19 11/06/19 Range/Units 15:23 16:24 16:24 WBC 9.2 (4.0-10.0) 10^3/ uL RBC 3.84 L (4.1-5.3) 10^6/u L Hgb 9.9 L (11.5-15.3) g/dL Hct 34.5 L (37.0-47.0) % MCV 89.8 (81-99) fL MCH 25.8 L (28.0-34.0) pg MCHC 28.7 L (30.0-36.0) g/dL RDW 13.9 (12.1-15.1) % Plt Count 235 (130-400) 10^3/c mm MPV 11.4 H (7.4-10.4) fL Neut % (Auto) 76.2 % Lymph % (Auto) 13.8 % [place] % (Auto) 5.3 % Eos % (Auto) 3.7 % Baso % (Auto) 0.5 % Neut # (Auto) 7.0 (1.8-7.7) 10^3/u L Lymph # (Auto) 1.3 (0.8-4.8) 10^3/u L [place] # (Auto) 0.5 (0.2-0.9) 10^3/u L Eos # (Auto) 0.3 (0.0-0.8) 10^3/u L Baso # (Auto) 0.1 (0.0-0.1) 10^3/u L Nucleated RBC % (a uto) 0 % Nucleated RBCs # 0.0 /100WBC Specimen Type Sample Site ABG pH (7.35-7.45) ABG pCO2 (35-45) mmHg ABG pO2 (80.0-100.0) mmH g ABG HCO3 (22-26) mmol/L ABG O2 Saturation ABG Base Excess (-2.0-2.0) mmol/ L Kike Test Hematocrit (37-47) % Hgb O2 Saturation (95-100) % Carboxyhemoglobin (0.4-20.1) %THgb Methemoglobin (0.4-1.5) % Total Hemoglobin (12-16) g/dL Ionized Calcium (1.1-1.4) mmol/L O2 Delivery Device O2 Liters/Min % Python Web Developer ID Sodium 142 (136-145) mmol/L Potassium 4.4 (3.5-5.1) mmol/L Chloride 98 (98-107) mmol/L Carbon Dioxide 36 H (22-29) mmol/L Anion Gap 12.4 (5-19) BUN 13 (8-23) mg/dL Creatinine 0.9 (0.5-0.9) mg/dL Glucose 152 H (65-115) mg/dL Calculated Osmolal ity 293 (285-295) mOsm/k g Calcium 10.1 (8.5-10.5) mg/dL Total Bilirubin 0.4 (0.15-1.2) mg/dL AST 12 (0-32) U/L ALT < 5 (0-33) U/L Alkaline Phosphata se 77 (35-105) IU/L Troponin T Baselin e (0-10) ng/mL Troponin T 120 Min [place] (0-10) ng/mL Delta Troponin T (0-10) ABS# Total Protein 6.4 L (6.6-8.7) g/dL Albumin 3.8 (3.5-5.2) g/dL Globulin 2.6 (1.3-4.6) g/dL Urine Color Yellow (Yellow) Urine Appearance Clear (CLEAR) Urine pH 5 (5-7) Ur Specific Gravit y 1.020 (1.005-1.030) Urine Protein Neg (Negative) Urine Glucose (UA) Trace H (Normal) Urine Ketones Negative (Negative) Urine Blood Neg (Negative) Urine Nitrate Negative (Negative) Urine Bilirubin Neg (NEGATIVE) Urine Urobilinogen Norm (Negative) mg/dL Ur Leukocyte Brianna ase Negative (Negative) 11/06/19 11/06/19 11/06/19 Range/Units 16:24 17:30 18:11 WBC (4.0-10.0) 10^3/ uL RBC (4.1-5.3) 10^6/u L Hgb (11.5-15.3) g/dL Hct (37.0-47.0) % MCV (81-99) fL MCH (28.0-34.0) pg MCHC (30.0-36.0) g/dL RDW (12.1-15.1) % Plt Count (130-400) 10^3/c mm MPV (7.4-10.4) fL Neut % (Auto) % Lymph % (Auto) % [place] % (Auto) % Eos % (Auto) % Baso % (Auto) % Neut # (Auto) (1.8-7.7) 10^3/u L Lymph # (Auto) (0.8-4.8) 10^3/u L [place] # (Auto) (0.2-0.9) 10^3/u L Eos # (Auto) (0.0-0.8) 10^3/u L Baso # (Auto) (0.0-0.1) 10^3/u L Nucleated RBC % (a uto) % Nucleated RBCs # /100WBC Specimen Type Arterial Sample Site Radial, left ABG pH 7.40 (7.35-7.45) ABG pCO2 55.8 H (35-45) mmHg ABG pO2 88.0 (80.0-100.0) mmH g ABG HCO3 34.7 H (22-26) mmol/L ABG O2 Saturation 97.5 ABG Base Excess 8.4 H (-2.0-2.0) mmol/ L Kike Test Pos Hematocrit 36.2 L (37-47) % Hgb O2 Saturation 96.0 (95-100) % Carboxyhemoglobin 0.7 (0.4-20.1) %THgb Methemoglobin 0.9 (0.4-1.5) % Total Hemoglobin 11.8 L (12-16) g/dL Ionized Calcium 1.2 (1.1-1.4) mmol/L O2 Delivery Device Nc O2 Liters/Min 5.0 % Python Web Developer ID [id number] Sodium 144.0 H (136-145) mmol/L Potassium 4.0 (3.5-5.1) mmol/L Chloride (98-107) mmol/L Carbon Dioxide (22-29) mmol/L Anion Gap (5-19) BUN (8-23) mg/dL Creatinine (0.5-0.9) mg/dL Glucose 179.0 H (65-115) mg/dL Calculated Osmolal ity (285-295) mOsm/k g Calcium (8.5-10.5) mg/dL Total Bilirubin (0.15-1.2) mg/dL AST (0-32) U/L ALT (0-33) U/L Alkaline Phosphata se (35-105) IU/L Troponin T Baselin e 11 H (0-10) ng/mL Troponin T 120 Min [place] 11.32 H (0-10) ng/mL Delta Troponin T 0.32 (0-10) ABS# Total Protein (6.6-8.7) g/dL Albumin (3.5-5.2) g/dL Globulin (1.3-4.6) g/dL Urine Color (Yellow) Urine Appearance (CLEAR) Urine pH (5-7) Ur Specific Gravit y (1.005-1.030) Urine Protein (Negative) Urine Glucose (UA) (Normal) Urine Ketones (Negative) Urine Blood (Negative) Urine Nitrate (Negative) Urine Bilirubin (NEGATIVE) Urine Urobilinogen (Negative) mg/dL Ur Leukocyte Brianna ase (Negative) Discharge Plan Discharge Patient Disposition: Home, Self-Care Clinical Impression: Acute exacerbation of chronic obstructive airways disease Condition: Stable Prescriptions: New doxycycline hyclate 100 mg capsule 100 mg PO BID 10 Days Qty: 20 RF: 0 prednisone 10 mg tablets,dose pack See Rx Instructions .ROUTE .COMPLEX Qty: 21 RF: 0 No Action furosemide 40 mg tablet 80 mg PO QAM RF: 0 nitroglycerin [Nitrostat] 0.4 mg tablet, sublingual 0.4 mg SUBLINGUAL Q5M PRN (Reason: Chest Pain) RF: 0 aspirin [Adult Aspirin Regimen] 81 mg tablet,delayed release (DR/EC) 81 mg PO DAILY RF: 0 Lantus Solostar U-100 Insulin 100 unit/mL (3 mL) insulin pen 60 unit SUBCUT QPM RF: 0 insulin lispro [Humalog KwikPen Insulin] 100 unit/mL insulin pen See Rx Instructions .ROUTE .COMPLEX RF: 0 Januvia 100 mg tablet 100 mg PO DAILY RF: 0 citalopram 10 mg tablet 10 mg PO DAILY RF: 0 montelukast [Singulair] 10 mg tablet 10 mg PO DAILY RF: 0 pravastatin 20 mg tablet 20 mg PO DAILY RF: 0 albuterol sulfate [ProAir HFA] 90 mcg/actuation HFA aerosol inhaler 2 puff INHALATION Q6H PRN (Reason: Shortness Of Breath) RF: 0 ipratropium-albuterol 0.5 mg-3 mg(2.5 mg base)/3 mL solution for nebulization 3 ml INHALATION QID PRN (Reason: wheezing) 90 Days Qty: 360 RF: 3 budesonide [Pulmicort] 0.5 mg/2 mL suspension for nebulization 0.5 mg INHALATION Q12H Qty: 120 RF: 3 albuterol sulfate 2.5 mg /3 mL (0.083 %) solution for nebulization 2.5 mg inhalation BID PRN (Reason: unknown) RF: 0 Ozempic 0.25 mg or 0.5 mg(2 mg/1.5 mL) pen injector 0.25 mg SUBCUT Q7D RF: 0 Discharge Orders: Discharge Order (Routine); Ordered 11/06/19 Ordered By: Mamie Barrett Referrals: Victorino Francis MD [Primary Care Provider] - Discharge Diet: Advance as tolerated Discharge Activity: Increase activity as tolerated Patient Instructions: Chronic Obstructive Pulmonary Disease (ED) Activity Restrictions/Additional Instructions: Please return to the ER immediately for any of the signs or symptoms listed on your discharge instruction sheets, worsening/changing of your symptoms, you are not getting better as quickly as expected, or for ANY other cause or concerns. Your EKG was abnormal and I have advised further evaluation and care of your heart to include more blood testing but you have declined. If you change your mind and want more evaluation of your heart you are more than welcome to return to the ER at any time. Take your antibiotics and steroids as I have discussed. Use your inhaler every 4 hours as needed along with your regular breathing treatments. Discharge Date/Time: 11/06/19 19:01 Coding Level of Care Code ED Peanut Farmer for Chg Fwd Exam Comprehensive
--- NOTE | 2019-11-06 16:04 | XR_ITS ---
WS: [id number] XR chest 1V portable [id number] REASON FOR EXAM: dyspnea/cough FINDINGS: The left lung base again shows the pleural thickening slightly more prominent suggesting so me degree of effusion is present. The heart and mediastinal interfaces were normal. There is no pneumonia, pleural effusion, pulmonary edema, or mass effect. The hilum is and apices are normal. XR/XR chest 1V portable [id number] IMPRESSION: Slight more prominent pleural thickening left lung base and findings suggesting a small amount of left pleural effusion.
--- NOTE | 2019-11-06 16:04 | ECG_ITS ---
Measurements Intervals [place] Rate: 81 P: 125 MD: 167 QRS: 48 QRSD: 109 T: 53 QT: 384 QTc: 446 SINUS RHYTHM WITH FREQUENT VENTRICULAR PREMATURE COMPLEXES IN A BIGEMINAL PATTERN POSSIBLE LEFT ATRIAL ENLARGEMENT [-0.1mV P WAVE IN V1/V2] MODERATE T-WAVE ABNORMALITY, CONSIDER ANTERIOR ISCHEMIA [-0.1+ mV T WAVE IN V3 V3/V4] Compared to ECG 06/20/2019 20:04:17 Ventricular premature complex(es) now present Indeterminate axis no longer present Incomplete right bundle-branch block no longer present T-wave abnormality still present Possible ischemia still present Electronically Signed On 11-06-2019 18:25:15 CDT by Trisha Horan M.D. [email or web address]
[2019-11-06 16:35] LABS: Basophils # 0.1 10^3/uL (0.0-0.1); Basophils % 0.5 %; Eosinophils # 0.3 10^3/uL (0.0-0.8); Eosinophils % 3.7 %; Hematocrit 34.5 % (37.0-47.0); Hemoglobin 9.9 g/dL (11.5-15.3); Lymphocytes # 1.3 10^3/uL (0.8-4.8); Lymphocytes % 13.8 %; Mean Corpuscular HGB Conc 28.7 g/dL (30.0-36.0); Mean Corpuscular Hemoglobin 25.8 pg (28.0-34.0); Mean Corpuscular Volume 89.8 fL (81-99); Mean Platelet Volume 11.4 fL (7.4-10.4); Monocytes # 0.5 10^3/uL (0.2-0.9); Monocytes % 5.3 %; Neutrophils % 76.2 %; Nucleated Red Blood Cells % 0 %; Platelet Count 235 10^3/cmm (130-400); Red Blood Count 3.84 10^6/uL (4.1-5.3); Red Cell Distribution Width 13.9 % (12.1-15.1); White Blood Count 9.2 10^3/uL (4.0-10.0)
[2019-11-06 16:36] VITALS: PULSE 78; RESP 18; O2SAT 97
[2019-11-06 17:14] LABS: Alanine Aminotransferase < 5 U/L (0-33); Albumin Level 3.8 g/dL (3.5-5.2); Alkaline Phosphatase 77 IU/L (35-105); Anion Gap 12.4 (5-19); Aspartate Amino Transferase 12 U/L (0-32); Blood Urea Nitrogen 13 mg/dL (8-23); Calcium 10.1 mg/dL (8.5-10.5); Carbon Dioxide 36 mmol/L (22-29); Chloride 98 mmol/L (98-107); Globulin 2.6 g/dL (1.3-4.6); Glucose 152 mg/dL (65-115); Osmolality Calculated 293 mOsm/kg (285-295); Potassium 4.4 mmol/L (3.5-5.1); Sodium 142 mmol/L (136-145); Total Bilirubin 0.4 mg/dL (0.15-1.2); Total Protein 6.4 g/dL (6.6-8.7)
[2019-11-06 17:47] LABS: ABG PCO2 55.8 mmHg (35-45); Arterial Blood Gas Hematocrit 36.2 % (37-47); Base Excess ABG 8.4 mmol/L (-2.0-2.0); Blood Gas Allen Test Pos; Blood Gas Sample Site Radial, left; Blood Gas Sample Type Arterial; Carboxyhemoglobin 0.7 %THgb (0.4-20.1); HCO3 ABG 34.7 mmol/L (22-26); Ionized Calcium Level - ABG 1.2 mmol/L (1.1-1.4); Methemoglobin 0.9 % (0.4-1.5); Oxygen Device NC; Oxygen Saturation ABG 97.5; Total Hemoglobin 11.8 g/dL (12-16)
--- NOTE | 2019-11-06 18:16 | PC.NURSE ---
Patient up to bedside commode
[2019-11-06 18:25] VITALS: BP 150/66; PULSE 75; RESP 16; O2SAT 93
--- NOTE | 2019-11-06 18:26 | PC.NURSE ---
Patient updated. No needs
[2019-11-06 18:29] LABS: Troponin(5th) Baseline 11 ng/mL (0-10)
[2019-11-06] MEDS: doxycycline 100 mg Tablet 200 MG PO (18:46)
[2019-11-06] MEDS: predniSONE 20 mg Tablet 60 MG PO (18:47)
[2019-11-06 18:57] LABS: Troponin 5 2HR 11.32 ng/mL (0-10); Troponin 5 2HR Delta 0.32 ABS# (0-10)
[2019-11-06 19:01] VITALS: BP 125/85; PULSE 75; RESP 16; O2SAT 97
[2019-11-06 20:22] LABS: Add Urine Microscopic? NO
[2019-11-06 20:48] LABS: Urine Appearance Clear (CLEAR); Urine Color Yellow (Yellow); pH Urine 5 (5-7)
[2019-11-06 20:49] LABS: Glucose Urine UA Trace (Normal); Protein Urine Neg (Negative)
[2019-11-06 20:50] LABS: Bilirubin Urine Neg (NEGATIVE); Blood Urine Neg (Negative); Ketones Urine Negative (Negative); Leukocyte Esterase Urine Negative (Negative); Nitrate Urine Negative (Negative); Urobilinogen Urine Norm (Negative)
== END 2019-11-06 19:01 | disposition home or self-care (01) ==
PROVIDERS: Family Medicine; Emergency Provider Emergency Medicine; Family Provider Family Medicine; PCP Family Medicine
DX: J44.1 Chronic obstructive pulmonary disease with (acute) exacerbation (principal); Z79.82 Long term (current) use of aspirin; Z79.4 Long term (current) use of insulin; Z87.891 Personal history of nicotine dependence
CPT/HCPCS: 12345; 71045; 80051; 80053; 81003; 82810; 83986; 84484; 85025; 87040; 93005; 94640; 96374; 96375; 99283; J2930; J7512; J7611

== ENCOUNTER 2019-12-08 10:08 | Outpatient (CLI) | payer MEDICARE, SELFPAY ==
--- NOTE | 2019-12-08 13:22 | PFTS_ITS ---
Date of Study:12/08/19 Date of Dictation: MECHANICS: Forced vital capacity (FVC) is reduced. Forced expiratory volume in one second (FEV1) is reduced. FEV1/FVC is reduced. FLOW VOLUME LOOP: Reduced flow at all lung volumes with significant scooping. LUNG VOLUMES: Total lung capacity (TLC) is mildly reduced. Residual volume (RV) is normal. DIFFUSING CAPACITY FOR CARBON MONOXIDE: Moderately reduced. INTERPRETATION: The pulmonary function tests are consistent with severe obstruction. There is also mild restriction Total lung capacity is mildly diminished Gas exchange (DLCO) is moderately reduced. MTDD
== END 2019-12-08 10:09 | disposition home or self-care (01) ==
LOC: RT 10:14
PROVIDERS: PCP Family Medicine; Visit Provider Internal Medicine Critical Care Medicine
DX: J44.9 Chronic obstructive pulmonary disease, unspecified (principal)
CPT/HCPCS: 94060; 94726; 94729; J7611

== ENCOUNTER 2020-01-27 16:59 | Emergency (ER) | payer MEDICARE, SELFPAY ==
[2020-01-27] VITALS (7 sets, daily range): BP systolic 124–152; BP diastolic 63–101; PULSE 75–86; RESP 16–30; TEMP 36.9; O2SAT 94–98; BMI 31.8
--- NOTE | 2020-01-27 17:22 | XRR_ITS ---
PROCEDURE INFORMATION: Exam: XR Chest, 1 View Exam date and time: 01/27/2020 5:57 PM Age: 74 years old Clinical indication: Cough and shortness of breath; Patient HX: Copd; Additional info: Dyspnea/cough TECHNIQUE: Imaging protocol: XR of the chest Views: 1 view. COMPARISON: CR XR chest 1V portable [id number] 11/06/2019 4:41 PM FINDINGS: Lungs: There is pleural thickening and or scarring at the left lung base which is similar to the prior study. Possible superimposed pleural effusion. Pleural space: See Lungs finding. Heart/Mediastinum: Unremarkable. No cardiomegaly. Bones/joints: Unremarkable. Soft tissues: Heart size not optimally evaluated with a single AP view of the chest. XR/XR chest 1V portable [id number] IMPRESSION: There is pleural thickening and or scarring at the left lung base which is similar to the prior study. Possible superimposed pleural effusion.
--- NOTE | 2020-01-27 17:36 | ED_ITS ---
Documented by User: Iván Nation DO 01/30/20 08:06 HPI - SOB/Dyspnea General: Chief Complaint: Shortness of Breath/Dyspnea Stated Complaint: SOB Time Seen by Provider: 01/27/20 17:17 History of Present Illness: HPI Narrative: 74-year-old female presents complaining of shortness of breath she is on oxygen 24/ usually 2 and half to 3 L/min she presents today complaining primarily shortness of breath and cough unfortunately she started smoking again as well recently she smokes 1/2 pack a day she is increased her oxygen to 3 L/min. She does have albuterol and Atrovent nebs at home she is only been using those twice a day she has a slight increase in sputum production with this as well she denies any fevers not been around anyone is has COVID that she is aware of. She denies any myalgias headache loss of taste or smell. MD elicited complaint: shortness of breath and cough Pertinent past history: COPD Onset (ago): day(s) Context: other (Restarted smoking recently) Timing: constant and progressively worsening Severity: moderate Exacerbating factors: exertion and coughing Relieving factors: oxygen, rest and bronchodilators Known history of: COPD Associated symptoms: Reports chest congestion and cough; Deny diaphoresis, fever(s), hemoptysis, lightheadedness, myalgias, nausea, orth opnea, syncope or vomiting Treatment prior to arrival: oxygen and bronchodilator Review of Systems Const: Denies: fever(s) or diaphoresis ENMT: Denies: throat pain, ear or mastoid pain, nasal discharge or nasal congestion Card: Denies: lightheadedness, syncope or orthopnea Resp: Reports: chest congestion; Denies: hemoptysis GI: Denies: nausea or vomiting : Denies: flank pain, difficulty voiding, dysuria, urinary frequency or urinary urgency Skin/Breast: Denies: rash or pruritus PFSH ED PFSH: Medical History CAD (coronary artery disease) Cataracts, bilateral CHF (congestive heart failure) COPD (chronic obstructive pulmonary disease) Diabetes mellitus Hx of ectopic OLAYINKA (obstructive sleep apnea) Surgical History H/O lymph node excision H/O tubal ligation History of appendectomy History of cholecystectomy History of hysterectomy History of rectal surgery Hx of cataract surgery Hx of tonsillectomy Family History Other CHF (congestive heart failure) Cancer Crohn's disease Diabetes Hypertension Social History (Updated 01/27/20 @ 17:41 by Iván Nation DO) Smoking and tobacco status: current every day smoker cigarettes Packs smoked per day: 0.5 Alcohol intake: never Lives independently: Yes Household members: none Housing: Apartment Current occupational status: retired and disabled History of recent travel: No Current gender identity: Female Physical Exam Const: COMMON NORMALS: no acute distress GENERAL APPEARANCE: cooperative a nd comfortable ORIENTATION/CONSCIOUSNESS: Yes awake, Yes oriented to person, Yes oriented to place and Yes oriented to time HENMT: COMMON NORMALS: normocephalic, atraumatic, hearing grossly normal bilaterally, external ears normal, EAC's normal, TM's normal bilaterally, Normal nasal mucous membranes and turbinates present, moist oral mucous membranes and oropharynx normal HEAD & SCALP: normocephalic and atraumatic NOSE: Normal nasal mucous membranes and turbinates present EXTERNAL EAR: Yes external ears normal EXTERNAL AUDITORY CANAL: EAC's normal TYMPANIC MEMBRANE: TM's normal bilaterally Eye: COMMON NORMALS: Equal, round and reactive pupils present, EOMs intact bilaterally, conjunctivae normal and no scleral icterus CONJUNCTIVA: Yes conjunctivae normal PUPIL: Yes Equal, round and reactive pupils present Neck/C-Spine: COMMON NORMALS: full ROM, no lymphadenopathy, supple and no JVD Lymph: LYMPHATIC: no lymphadenopathy noted and no lymphedema noted Resp: AUSCULTATION: wheezes and diminished lung sounds Cardio: COMMON NORMALS: no JVD, regular rate, regular rhythm and No murmurs present (Cardio) RATE: regular rate RHYTHM: regular rhythm GI: COMMON NORMALS: Soft to palpation and No hepatosplenomegaly present AUSCULTATION: Yes normoactive bowel sounds PALPATION: Yes Soft to palpation, No Tenderness to palpation present (GI), No Guarding due to palpation present (GI) and Yes No hepatosplenomegaly present Extremity: COMMON NORMALS: normal to inspection, capillary refill normal, no clubbing, cyanosis or edema, no calf tenderness and no pedal edema Neuro: SENSORIUM/ORIENTATION: Yes oriented to person, Yes oriented to place and Yes oriented to time Skin: COMMON NORMALS: no rashes or lesions noted GENERAL SKIN EXAM: no rashes or lesions noted Course Vital Signs: Vital signs: Vital Signs Temperature 98.5 F 01/27/20 17:10 Pulse Rate 78 01/27/20 21:58 Respiratory Rate 18 01/27/20 21:58 Blood Pressure 132/63 01/27/20 21:58 Pulse Oximetry 96 01/27/20 21:58 MDM - SOB/Dyspnea MDM Narrative: Medical decision making narrative: Care transferred to Dr. Gould at change of shift see his notes for definitive diagnosis and disposition. Lab Data: Labs: Lab Results 01/27/20 01/27/20 01/27/20 Range/Units 17:52 17:52 17:52 WBC 11.5 H (4.0-10.0) 10^3/ uL RBC 4.81 (4.1-5.3) 10^6/u L Hgb 12.3 (11.5-15.3) g/dL Hct 42.3 (37.0-47.0) % MCV 87.9 (81-99) fL MCH 25.6 L (28.0-34.0) pg MCHC 29.1 L (30.0-36.0) g/dL RDW 15.3 H (12.1-15.1) % Plt Count 219 (130-400) 10^3/c mm MPV 12.0 H (7.4-10.4) fL Neut % (Auto) 80.4 % Lymph % (Auto) 9.0 % Hardeman % (Auto) 5.2 % Eos % (Auto) 4.3 % Baso % (Auto) 0.6 % Neut # (Auto) 9.22 H (1.8-7.7) 10^3/u L Lymph # (Auto) 1.0 (0.8-4.8) 10^3/u L Hardeman # (Auto) 0.6 (0.2-0.9) 10^3/u L Eos # (Auto) 0.5 (0.0-0.8) 10^3/u L Baso # (Auto) 0.1 (0.0-0.1) 10^3/u L Nucleated RBC % (a uto) 0 % Nucleated RBCs # 0.0 /100WBC Specimen Type Sample Site ABG pH (7.35-7.45) ABG pCO2 (35-45) mmHg ABG pO2 (80.0-100.0) mmH g ABG HCO3 (22-26) mmol/L ABG O2 Saturation ABG Base Excess (-2.0-2.0) mmol/ L Kike Test A-a O2 Gradient (5-10) mmHg Hematocrit (37-47) % Hgb O2 Saturation (95-100) % Carboxyhemoglobin (0.4-20.1) %THgb Methemoglobin (0.4-1.5) % Total Hemoglobin (12-16) g/dL Ionized Calcium (1.1-1.4) mmol/L O2 Delivery Device O2 Liters/Min % FiO2 % Commercial Stripper ID Sodium 135 L (136-145) mmol/L Potassium 4.5 (3.5-5.1) mmol/L Chloride 94 L (98-107) mmol/L Carbon Dioxide 34 H (22-29) mmol/L Anion Gap 11.5 (5-19) BUN 17 (8-23) mg/dL Creatinine 0.8 (0.5-0.9) mg/dL GFR Calculation Not Reportable Glucose 281 H (65-115) mg/dL Calculated Osmolal ity 287 (285-295) mOsm/k g Calcium 10.0 (8.5-10.5) mg/dL Total Bilirubin 0.5 (0.15-1.2) mg/dL AST 15 (0-32) U/L ALT < 5 (0-33) U/L Alkaline Phosphata se 80 (35-105) IU/L NT-Pro-B Natriuret Pep 19 (0-450) pg/mL Total Protein 6.9 (6.6-8.7) g/dL Albumin 4.2 (3.5-5.2) g/dL Globulin 2.7 (1.3-4.6) g/dL Urine Color (Yellow) Urine Appearance (CLEAR) Urine pH (5-7) Ur Specific Gravit y (1.005-1.030) Urine Protein (Negative) Urine Glucose (UA) (Normal) Urine Ketones (Negative) Urine Blood (Negative) Urine Nitrate (Negative) Urine Bilirubin (NEGATIVE) Urine Urobilinogen (Negative) mg/dL Ur Leukocyte Brianna ase (Negative) Urine RBC (0-2) /hpf Urine WBC (0-5) /hpf Ur Squamous Epith Cells (0-5) Amorphous Sediment Urine Bacteria (NONE) SARS-CoV-2 RNA (RT -PCR) (NOT DETECTED) 01/27/20 01/27/20 01/27/20 Range/Units 18:29 19:30 21:50 WBC (4.0-10.0) 10^3/ uL RBC (4.1-5.3) 10^6/u L Hgb (11.5-15.3) g/dL Hct (37.0-47.0) % MCV (81-99) fL MCH (28.0-34.0) pg MCHC (30.0-36.0) g/dL RDW (12.1-15.1) % Plt Count (130-400) 10^3/c mm MPV (7.4-10.4) fL Neut % (Auto) % Lymph % (Auto) % Hardeman % (Auto) % Eos % (Auto) % Baso % (Auto) % Neut # (Auto) (1.8-7.7) 10^3/u L Lymph # (Auto) (0.8-4.8) 10^3/u L Hardeman # (Auto) (0.2-0.9) 10^3/u L Eos # (Auto) (0.0-0.8) 10^3/u L Baso # (Auto) (0.0-0.1) 10^3/u L Nucleated RBC % (a uto) % Nucleated RBCs # /100WBC Specimen Type Arterial Sample Site Brachial, right ABG pH 7.40 (7.35-7.45) ABG pCO2 58.1 H (35-45) mmHg ABG pO2 81.0 (80.0-100.0) mmH g ABG HCO3 35.8 H (22-26) mmol/L ABG O2 Saturation 96.6 ABG Base Excess 8.9 H (-2.0-2.0) mmol/ L Kike Test N/a A-a O2 Gradient 46.9 H (5-10) mmHg Hematocrit 39.1 (37-47) % Hgb O2 Saturation 93.5 L (95-100) % Carboxyhemoglobin 2.4 (0.4-20.1) %THgb Methemoglobin 0.7 (0.4-1.5) % Total Hemoglobin 12.8 (12-16) g/dL Ionized Calcium 1.2 (1.1-1.4) mmol/L O2 Delivery Device Nc O2 Liters/Min 2.0 % FiO2 28.0 % Commercial Stripper ID [id number] Sodium 140.0 (136-145) mmol/L Potassium 4.5 (3.5-5.1) mmol/L Chloride (98-107) mmol/L Carbon Dioxide (22-29) mmol/L Anion Gap (5-19) BUN (8-23) mg/dL Creatinine (0.5-0.9) mg/dL GFR Calculation Glucose 241.0 H (65-115) mg/dL Calculated Osmolal ity (285-295) mOsm/k g Calcium (8.5-10.5) mg/dL Total Bilirubin (0.15-1.2) mg/dL AST (0-32) U/L ALT (0-33) U/L Alkaline Phosphata se (35-105) IU/L NT-Pro-B Natriuret Pep (0-450) pg/mL Total Protein (6.6-8.7) g/dL Albumin (3.5-5.2) g/dL Globulin (1.3-4.6) g/dL Urine Color Yellow (Yellow) Urine Appearance Hazy A (CLEAR) Urine pH 5 (5-7) Ur Specific Gravit y 1.025 (1.005-1.030) Urine Protein Neg (Negative) Urine Glucose (UA) 2+ (Normal) Urine Ketones Negative (Negative) Urine Blood Neg (Negative) Urine Nitrate Negative (Negative) Urine Bilirubin Neg (NEGATIVE) Urine Urobilinogen Norm (Negative) mg/dL Ur Leukocyte Brianna ase Negative (Negative) Urine RBC 0-4 H (0-2) /hpf Urine WBC None (0-5) /hpf Ur Squamous Epith Cells 5-10 H (0-5) Amorphous Sediment Not Reportable Urine Bacteria Trace (NONE) SARS-CoV-2 RNA (RT -PCR) Not detected (NOT DETECTED) Discharge Plan Discharge Patient Disposition: Home Clinical Impression: Acute exacerbation of chronic obstructive airways disease Community acquired pneumonia Qualifiers: Laterality: unspecified laterality Qualified Code(s): J18.9 - Pneumonia, unspecified organism Condition: Stable Prescriptions: New Levaquin 750 mg tablet 750 mg PO DAILY 10 Days Qty: 10 RF: 0 prednisone 20 mg tablet 40 mg PO DAILY 5 Days Qty: 10 RF: 0 No Action furosemide 40 mg tablet 80 mg PO QAM RF: 0 nitroglycerin [Nitrostat] 0.4 mg tablet, sublingual 0.4 mg SUBLINGUAL Q5M PRN (Reason: Chest Pain) RF: 0 aspirin [Adult Aspirin Regimen] 81 mg tablet,delayed release (DR/EC) 81 mg PO DAILY RF: 0 Lantus Solostar U-100 Insulin 100 unit/mL (3 mL) insulin pen 60 unit SUBCUT QPM RF: 0 insulin lispro [Humalog KwikPen Insulin] 100 unit/mL insulin pen See Rx Instructions .ROUTE .COMPLEX RF: 0 Januvia 100 mg tablet 100 mg PO DAILY RF: 0 citalopram 10 mg tablet 10 mg PO DAILY RF: 0 montelukast [Singulair] 10 mg tablet 10 mg PO DAILY RF: 0 pravastatin 20 mg tablet 20 mg PO DAILY RF: 0 albuterol sulfate [ProAir HFA] 90 mcg/actuation HFA aerosol inhaler 2 puff INHALATION Q6H PRN (Reason: Shortness Of Breath) RF: 0 ipratropium-albuterol 0.5 mg-3 mg(2.5 mg base)/3 mL solution for nebulization 3 ml INHALATION QID PRN (Reason: wheezing) 90 Days Qty: 360 RF: 3 budesonide [Pulmicort] 0.5 mg/2 mL suspension for nebulization 0.5 mg INHALATION Q12H Qty: 120 RF: 3 albuterol sulfate 2.5 mg /3 mL (0.083 %) solution for nebulization 2.5 mg inhalation BID PRN (Reason: unknown) RF: 0 Ozempic 0.25 mg or 0.5 mg(2 mg/1.5 mL) pen injector 0.25 mg SUBCUT Q7D RF: 0 prednisone 10 mg tablets,dose pack See Rx Instructions .ROUTE .COMPLEX Qty: 21 RF: 0 Discharge Orders: Discharge Order (Routine); Ordered 01/27/20 Ordered By: Perico Gould Referrals: Victorino Francis MD [Primary Care Provider] - 4-7 days Discharge Diet: Usual diet Discharge Activity: Increase activity as tolerated Patient Instructions: Chronic Obstructive Pulmonary Disease (ED), Pneumonia (ED) Activity Restrictions/Additional Instructions: Use your inhaler every 4 hours while awake for the next 48 hours, then as needed. Return to the emergency department for fever greater than 100, worsening shortness of breath despite treatment, chest discomfort, other concerning symptoms. Discharge Date/Time: 01/27/20 21:59 Coding Level of Care Code ED [employer] for Chg Fwd Exam Comprehensive Documented by User: Perico Gould DO 01/28/20 03:01 HPI - SOB/Dyspnea General: Chief Complaint: Shortness of Breath/Dyspnea Stated Complaint: SOB Time Seen by Provider: 01/27/20 17:17 ON LICENSE OF [facility] ED PFSH: Medical History CAD (coronary artery disease) Cataracts, bilateral CHF (congestive heart failure) COPD (chronic obstructive pulmonary disease) Diabetes mellitus Hx of ectopic OLAYINKA (obstructive sleep apnea) Surgical History H/O lymph node excision H/O tubal ligation History of appendectomy History of cholecystectomy History of hysterectomy History of rectal surgery Hx of cataract surgery Hx of tonsillectomy Family History Other CHF (congestive heart failure) Cancer Crohn's disease Diabetes Hypertension Social History (Updated 01/27/20 @ 17:41 by Iván Nation DO) Smoking and tobacco status: current every day smoker cigarettes Packs smoked per day: 0.5 Alcohol intake: never Lives independently: Yes Household members: none Housing: Apartment Current occupational status: retired and disabled History of recent travel: No Current gender identity: Female Course Vital Signs: Vital signs: Vital Signs Temperature 98.5 F 01/27/20 17:10 Pulse Rate 78 01/27/20 21:58 Respiratory Rate 18 01/27/20 21:58 Blood Pressure 132/63 01/27/20 21:58 Pulse Oximetry 96 01/27/20 21:58 MDM - SOB/Dyspnea MDM Narrative: Medical decision making narrative: 74-year-old lady checked out to me at change of shift by Dr. Nation. This lady has chronic COPD. She appe ars to be near end-stage. She presents with shortness of breath and some wheezing. She is back at her baseline oxygen level after breathing treatment here. Her white blood cell count is 11.5. She had what appeared to be a mild left chronic effusion on chest x-ray. She was given a CT scan, noncontrast, as she is allergic. It showed no effusion. There was some atelectasis versus infiltrate of the bilateral lower lobes. Because of this, she was tested for COVID-19. She has had no contact. She is at her baseline oxygen level. She received Solu-Medrol here with improvement. She will go home on antibiotics to cover for possible pneumonia, as well as steroid therapy. They know to bring her back if she is worsening. Lab Data: Labs: Lab Results 01/27/20 01/27/20 01/27/20 Range/Units 17:52 17:52 17:52 WBC 11.5 H (4.0-10.0) 10^3/ uL RBC 4.81 (4.1-5.3) 10^6/u L Hgb 12.3 (11.5-15.3) g/dL Hct 42.3 (37.0-47.0) % MCV 87.9 (81-99) fL MCH 25.6 L (28.0-34.0) pg MCHC 29.1 L (30.0-36.0) g/dL RDW 15.3 H (12.1-15.1) % Plt Count 219 (130-400) 10^3/c mm MPV 12.0 H (7.4-10.4) fL Neut % (Auto) 80.4 % Lymph % (Auto) 9.0 % Hardeman % (Auto) 5.2 % Eos % (Auto) 4.3 % Baso % (Auto) 0.6 % Neut # (Auto) 9.22 H (1.8-7.7) 10^3/u L Lymph # (Auto) 1.0 (0.8-4.8) 10^3/u L Hardeman # (Auto) 0.6 (0.2-0.9) 10^3/u L Eos # (Auto) 0.5 (0.0-0.8) 10^3/u L Baso # (Auto) 0.1 (0.0-0.1) 10^3/u L Nucleated RBC % (a uto) 0 % Nucleated RBCs # 0.0 /100WBC Specimen Type Sample Site ABG pH (7.35-7.45) ABG pCO2 (35-45) mmHg ABG pO2 (80.0-100.0) mmH g ABG HCO3 (22-26) mmol/L ABG O2 Saturation ABG Base Excess (-2.0-2.0) mmol/ L Kike Test A-a O2 Gradient (5-10) mmHg Hematocrit (37-47) % Hgb O2 Saturation (95-100) % Carboxyhemoglobin (0.4-20.1) %THgb Methemoglobin (0.4-1.5) % Total Hemoglobin (12-16) g/dL Ionized Calcium (1.1-1.4) mmol/L O2 Delivery Device O2 Liters/Min % FiO2 % Commercial Stripper ID Sodium 135 L (136-145) mmol/L Potassium 4.5 (3.5-5.1) mmol/L Chloride 94 L (98-107) mmol/L Carbon Dioxide 34 H (22-29) mmol/L Anion Gap 11.5 (5-19) BUN 17 (8-23) mg/dL Creatinine 0.8 (0.5-0.9) mg/dL GFR Calculation Not Reportable Glucose 281 H (65-115) mg/dL Calculated Osmolal ity 287 (285-295) mOsm/k g Calcium 10.0 (8.5-10.5) mg/dL Total Bilirubin 0.5 (0.15-1.2) mg/dL AST 15 (0-32) U/L ALT < 5 (0-33) U/L Alkaline Phosphata se 80 (35-105) IU/L NT-Pro-B Natriuret Pep 19 (0-450) pg/mL Total Protein 6.9 (6.6-8.7) g/dL Albumin 4.2 (3.5-5.2) g/dL Globulin 2.7 (1.3-4.6) g/dL Urine Color (Yellow) Urine Appearance (CLEAR) Urine pH (5-7) Ur Specific Gravit y (1.005-1.030) Urine Protein (Negative) Urine Glucose (UA) (Normal) Urine Ketones (Negative) Urine Blood (Negative) Urine Nitrate (Negative) Urine Bilirubin (NEGATIVE) Urine Urobilinogen (Negative) mg/dL Ur Leukocyte Brianna ase (Negative) Urine RBC (0-2) /hpf Urine WBC (0-5) /hpf Ur Squamous Epith Cells (0-5) Amorphous Sediment Urine Bacteria (NONE) SARS-CoV-2 RNA (RT -PCR) (NOT DETECTED) 01/27/20 01/27/20 01/27/20 Range/Units 18:29 19:30 21:50 WBC (4.0-10.0) 10^3/ uL RBC (4.1-5.3) 10^6/u L Hgb (11.5-15.3) g/dL Hct (37.0-47.0) % MCV (81-99) fL MCH (28.0-34.0) pg MCHC (30.0-36.0) g/dL RDW (12.1-15.1) % Plt Count (130-400) 10^3/c mm MPV (7.4-10.4) fL Neut % (Auto) % Lymph % (Auto) % Hardeman % (Auto) % Eos % (Auto) % Baso % (Auto) % Neut # (Auto) (1.8-7.7) 10^3/u L Lymph # (Auto) (0.8-4.8) 10^3/u L Hardeman # (Auto) (0.2-0.9) 10^3/u L Eos # (Auto) (0.0-0.8) 10^3/u L Baso # (Auto) (0.0-0.1) 10^3/u L Nucleated RBC % (a uto) % Nucleated RBCs # /100WBC Specimen Type Arterial Sample Site Brachial, right ABG pH 7.40 (7.35-7.45) ABG pCO2 58.1 H (35-45) mmHg ABG pO2 81.0 (80.0-100.0) mmH g ABG HCO3 35.8 H (22-26) mmol/L ABG O2 Saturation 96.6 ABG Base Excess 8.9 H (-2.0-2.0) mmol/ L Kike Test N/a A-a O2 Gradient 46.9 H (5-10) mmHg Hematocrit 39.1 (37-47) % Hgb O2 Saturation 93.5 L (95-100) % Carboxyhemoglobin 2.4 (0.4-20.1) %THgb Methemoglobin 0.7 (0.4-1.5) % Total Hemoglobin 12.8 (12-16) g/dL Ionized Calcium 1.2 (1.1-1.4) mmol/L O2 Delivery Device Nc O2 Liters/Min 2.0 % FiO2 28.0 % Commercial Stripper ID gd Sodium 140.0 (136-145) mmol/L Potassium 4.5 (3.5-5.1) mmol/L Chloride (98-107) mmol/L Carbon Dioxide (22-29) mmol/L Anion Gap (5-19) BUN (8-23) mg/dL Creatinine (0.5-0.9) mg/dL GFR Calculation Glucose 241.0 H (65-115) mg/dL Calculated Osmolal ity (285-295) mOsm/k g Calcium (8.5-10.5) mg/dL Total Bilirubin (0.15-1.2) mg/dL AST (0-32) U/L ALT (0-33) U/L Alkaline Phosphata se (35-105) IU/L NT-Pro-B Natriuret Pep (0-450) pg/mL Total Protein (6.6-8.7) g/dL Albumin (3.5-5.2) g/dL Globulin (1.3-4.6) g/dL Urine Color Yellow (Yellow) Urine Appearance Hazy A (CLEAR) Urine pH 5 (5-7) Ur Specific Gravit y 1.025 (1.005-1.030) Urine Protein Neg (Negative) Urine Glucose (UA) 2+ (Normal) Urine Ketones Negative (Negative) Urine Blood Neg (Negative) Urine Nitrate Negative (Negative) Urine Bilirubin Neg (NEGATIVE) Urine Urobilinogen Norm (Negative) mg/dL Ur Leukocyte Brianna ase Negative (Negative) Urine RBC 0-4 H (0-2) /hpf Urine WBC None (0-5) /hpf Ur Squamous Epith Cells 5-10 H (0-5) Amorphous Sediment Not Reportable Urine Bacteria Trace (NONE) SARS-CoV-2 RNA (RT -PCR) Not detected (NOT DETECTED) Discharge Plan Discharge Patient Disposition: Home Clinical Impression: Acute exacerbation of chronic obstructive airways disease Community acquired pneumonia Qualifiers: Laterality: unspecified laterality Qualified Code(s): J18.9 - Pneumonia, unspecified organism Condition: Stable Prescriptions: New Levaquin 750 mg tablet 750 mg PO DAILY 10 Days Qty: 10 RF: 0 prednisone 20 mg tablet 40 mg PO DAILY 5 Days Qty: 10 RF: 0 No Action furosemide 40 mg tablet 80 mg PO QAM RF: 0 nitroglycerin [Nitrostat] 0.4 mg tablet, sublingual 0.4 mg SUBLINGUAL Q5M PRN (Reason: Chest Pain) RF: 0 aspirin [Adult Aspirin Regimen] 81 mg tablet,delayed release (DR/EC) 81 mg PO DAILY RF: 0 Lantus Solostar U-100 Insulin 100 unit/mL (3 mL) insulin pen 60 unit SUBCUT QPM RF: 0 insulin lispro [Humalog KwikPen Insulin] 100 unit/mL insulin pen See Rx Instructions .ROUTE .COMPLEX RF: 0 Januvia 100 mg tablet 100 mg PO DAILY RF: 0 citalopram 10 mg tablet 10 mg PO DAILY RF: 0 montelukast [Singulair] 10 mg tablet 10 mg PO DAILY RF: 0 pravastatin 20 mg tablet 20 mg PO DAILY RF: 0 albuterol sulfate [ProAir HFA] 90 mcg/actuation HFA aerosol inhaler 2 puff INHALATION Q6H PRN (Reason: Shortness Of Breath) RF: 0 ipratropium-albuterol 0.5 mg-3 mg(2.5 mg base)/3 mL solution for nebulization 3 ml INHALATION QID PRN (Reason: wheezing) 90 Days Qty: 360 RF: 3 budesonide [Pulmicort] 0.5 mg/2 mL suspension for nebulization 0.5 mg INHALATION Q12H Qty: 120 RF: 3 albuterol sulfate 2.5 mg /3 mL (0.083 %) solution for nebulization 2.5 mg inhalation BID PRN (Reason: unknown) RF: 0 Ozempic 0.25 mg or 0.5 mg(2 mg/1.5 mL) pen injector 0.25 mg SUBCUT Q7D RF: 0 prednisone 10 mg tablets,dose pack See Rx Instructions .ROUTE .COMPLEX Qty: 21 RF: 0 Discharge Orders: Discharge Order (Routine); Ordered 01/27/20 Ordered By: Perico Gould Referrals: Victorino Francis MD [Primary Care Provider] - 4-7 days Discharge Diet: Usual diet Discharge Activity: Increase activity as tolerated Patient Instructions: Chronic Obstructive Pulmonary Disease (ED), Pneumonia (ED) Activity Restrictions/Additional Instructions: Use your inhaler every 4 hours while awake for the next 48 hours, then as needed. Return to the emergency department for fever greater than 100, worsening shortness of breath despite treatment, chest discomfort, other concerning symptoms. Discharge Date/Time: 01/27/20 21:59 Coding Level of Care Code ED [employer] for [employer]g Fwd Exam Comprehensive
[2020-01-27] MEDS: ipratropium-albuterol 3 mL Neb INHALATION (17:57)
[2020-01-27 18:00] LABS: Basophils # 0.1 10^3/uL (0.0-0.1); Basophils % 0.6 %; Eosinophils # 0.5 10^3/uL (0.0-0.8); Eosinophils % 4.3 %; Hematocrit 42.3 % (37.0-47.0); Hemoglobin 12.3 g/dL (11.5-15.3); Mean Corpuscular HGB Conc 29.1 g/dL (30.0-36.0); Mean Corpuscular Hemoglobin 25.6 pg (28.0-34.0); Mean Corpuscular Volume 87.9 fL (81-99); Monocytes # 0.6 10^3/uL (0.2-0.9); Monocytes % 5.2 %; Neutrophils # 9.22 10^3/uL (1.8-7.7); Neutrophils % 80.4 %; Nucleated Red Blood Cells % 0 %; Platelet Count 219 10^3/cmm (130-400); Red Blood Count 4.81 10^6/uL (4.1-5.3); Red Cell Distribution Width 15.3 % (12.1-15.1); White Blood Count 11.5 10^3/uL (4.0-10.0)
--- NOTE | 2020-01-27 18:11 | CTR_ITS ---
PROCEDURE INFORMATION: Exam: CT Chest Without Contrast Exam date and time: 01/27/2020 6:44 PM Age: 74 years old Clinical indication: Dyspnea; Patient HX: C/O progressive SOB x several days; Additional info: Dysonea TECHNIQUE: Imaging protocol: Computed tomography of the chest without contrast. Radiation optimization: All CT scans at this facility use at least one of these dose optimization techniques: automated exposure control; mA and/or kV adjustment per patient size (includes targeted exams where dose is matched to clinical indication); or iterative reconstruction. COMPARISON: CT chest con [id number] 02/20/2015 1:23 PM RADIATION DOSE METRICS: Total DLP (mGy-cm): 673.85 FINDINGS: Lungs: There are centrilobular emphysematous changes in the bilateral lungs. Streaky densities at the lung bases are most consistent with scarring and/or atelectasis. There are scattered small regions of ground-glass opacity in the bilateral lungs. Pleural space: Unremarkable. No pneumothorax. No pleural effusion. Heart: Multivessel atherosclerotic disease which involves the coronary arteries. Aorta: Unremarkable. No aortic aneurysm. Lymph nodes: Unremarkable. No enlarged lymph nodes. Bones/joints: Unremarkable. No acute fracture. Soft tissues: Unremarkable. There is a cyst in the upper pole of the left kidney measuring 2.0 cm. This has benign features. Follow-up is not necessary.The gallbladder has been removed. CT/CT chest con [id number] IMPRESSION: 1. There are centrilobular emphysematous changes in the bilateral lungs. 2. Small scattered ground-glass opacities in the bilateral lungs are nonspecific. Differential includes pulmonary edema, pneumonitis, and/or pneumonia. 3. Multivessel atherosclerotic disease which involves the coronary arteries. Radiation Dose CTDIVOL = (mGy): DLP = 673.85 (mGy-cm)
[2020-01-27 18:16] LABS: Alanine Aminotransferase < 5 U/L (0-33); Albumin Level 4.2 g/dL (3.5-5.2); Alkaline Phosphatase 80 IU/L (35-105); Anion Gap 11.5 (5-19); Aspartate Amino Transferase 15 U/L (0-32); Blood Urea Nitrogen 17 mg/dL (8-23); Carbon Dioxide 34 mmol/L (22-29); Chloride 94 mmol/L (98-107); Creatinine Clr Calc Pharmacy 61.4837; Globulin 2.7 g/dL (1.3-4.6); Glucose 281 mg/dL (65-115); Osmolality Calculated 287 mOsm/kg (285-295); Potassium 4.5 mmol/L (3.5-5.1); Sodium 135 mmol/L (136-145); Total Bilirubin 0.5 mg/dL (0.15-1.2); Total Protein 6.9 g/dL (6.6-8.7)
[2020-01-27 18:43] LABS: ABG PCO2 58.1 mmHg (35-45); Alveolar-Arterial Oxygen Gradi 46.9 mmHg (5-10); Arterial Blood Gas Hematocrit 39.1 % (37-47); Base Excess ABG 8.9 mmol/L (-2.0-2.0); Blood Gas Sample Site Brachial, right; Blood Gas Sample Type Arterial; Carboxyhemoglobin 2.4 %THgb (0.4-20.1); HCO3 ABG 35.8 mmol/L (22-26); HGB O2 Sat 93.5 % (95-100); Ionized Calcium Level - ABG 1.2 mmol/L (1.1-1.4); Methemoglobin 0.7 % (0.4-1.5); Oxygen Device NC; Oxygen Saturation ABG 96.6; Potassium Level - ABG 4.5 mmol/L (3.5-5.0); Total Hemoglobin 12.8 g/dL (12-16)
--- NOTE | 2020-01-27 18:50 | PC.NURSE ---
Pt in CT
[2020-01-27 19:42] LABS: NT Pro B Type Natriuretic Pept 19 pg/mL (0-450)
[2020-01-27] MEDS: diphenhydrAMINE 50 mg/mL SDV 1mL 12.5 MG IVP (19:56)
[2020-01-27 20:20] LABS: Urine Color Yellow (Yellow)
[2020-01-27 20:21] LABS: Add Urine Microscopic? YES; Bilirubin Urine Neg (NEGATIVE); Blood Urine Neg (Negative); Glucose Urine UA 2+ (Normal); Ketones Urine Negative (Negative); Leukocyte Esterase Urine Negative (Negative); Nitrate Urine Negative (Negative); Protein Urine Neg (Negative); Specific Gravity, Urine 1.025 (1.005-1.030); Urine Appearance Hazy (CLEAR); Urobilinogen Urine Norm (Negative); pH Urine 5 (5-7)
[2020-01-27 20:31] LABS: Add Urine Culture? No; Bacteria Urine TRACE; RBC Urine 0-4 /hpf (0-2)
[2020-01-27] MEDS: levoFLOXacin 750 mg Tablet PO (21:57)
[2020-01-30 03:24] LABS: Quest SARS-CoV-2 RNA NOT DETECTED (NOT DETECTED)
--- NOTE | 2020-01-30 08:27 | PC.NURSE ---
Pt called and notified of negative COVID results.
== END 2020-01-27 21:59 | disposition home or self-care (01) ==
PROVIDERS: Family Medicine; Emergency Provider Emergency Medicine; PCP Family Medicine
DX: J44.0 Chronic obstructive pulmonary disease with (acute) lower respiratory infection (principal); J18.9 Pneumonia, unspecified organism; J44.1 Chronic obstructive pulmonary disease with (acute) exacerbation; Z79.82 Long term (current) use of aspirin; Z79.4 Long term (current) use of insulin; I25.10 Atherosclerotic heart disease of native coronary artery without angina pectoris; I50.9 Heart failure, unspecified; E11.9 Type 2 diabetes mellitus without complications; F17.210 Nicotine dependence, cigarettes, uncomplicated
CPT/HCPCS: 12345; 36415; 36600; 71045; 71250; 80051; 80053; 81001; 81003; 82810; 83880; 83986; 85025; 87635; 94640; 96374; 96375; 99283; 99284; J1200; J2930

== ENCOUNTER 2020-05-17 08:16 | Emergency (ER) | payer MEDICARE, SELFPAY ==
[2020-05-17] VITALS (14 sets, daily range): BP systolic 134–151; BP diastolic 63–75; PULSE 92–99; RESP 18–30; TEMP 37; O2SAT 86–99; BMI 32.8
--- NOTE | 2020-05-17 08:37 | XR_ITS ---
WS: [id number] Portable AP upright chest, 05/17/2020 Clinical Data: shortness of breath/dyspnea Comparison: Portable chest, 01/27/2020. Findings: No nodules, masses or effusions are seen. The heart is normal. The pulmonary vascularity is not increased. No pneumonia or pneumothorax is seen. There is a left pleural scarring unchanged. Mon itor leads are on the chest wall. The diaphragms are flattened. XR/XR chest 1V portable [id number] Impression: Hyperinflation
[2020-05-17 08:46] LABS: Basophils # 0.1 10^3/uL (0.0-0.1); Eosinophils # 0.6 10^3/uL (0.0-0.8); Eosinophils % 6.2 %; Hematocrit 46.7 % (37.0-47.0); Hemoglobin 13.6 g/dL (11.5-15.3); Lymphocytes # 0.7 10^3/uL (0.8-4.8); Lymphocytes % 7.9 %; Mean Corpuscular HGB Conc 29.1 g/dL (30.0-36.0); Mean Corpuscular Volume 96.1 fL (81-99); Mean Platelet Volume 11.8 fL (7.4-10.4); Monocytes # 0.4 10^3/uL (0.2-0.9); Monocytes % 4.7 %; Neutrophils # 7.11 10^3/uL (1.8-7.7); Neutrophils % 79.2 %; Nucleated Red Blood Cells % 0 %; Platelet Count 201 10^3/cmm (130-400); Red Blood Count 4.86 10^6/uL (4.1-5.3); Red Cell Distribution Width 13.4 % (12.1-15.1)
[2020-05-17 09:04] LABS: Alanine Aminotransferase 6 U/L (0-33); Albumin Level 4.1 g/dL (3.5-5.2); Alkaline Phosphatase 94 IU/L (35-105); Anion Gap 11.1 (5-19); Aspartate Amino Transferase 11 U/L (0-32); Blood Urea Nitrogen 15 mg/dL (8-23); Calcium 9.3 mg/dL (8.5-10.5); Chloride 93 mmol/L (98-107); Globulin 2.5 g/dL (1.3-4.6); Glucose 219 mg/dL (65-115); Osmolality Calculated 300 mOsm/kg (285-295); Potassium 4.1 mmol/L (3.5-5.1); Sodium 141 mmol/L (136-145); Total Bilirubin 0.4 mg/dL (0.15-1.2); Total Protein 6.6 g/dL (6.6-8.7)
--- NOTE | 2020-05-17 09:07 | ECG_ITS ---
[facility] Test Date: 2020-05-17 Pat Name: Citlalli Mccord Department: Room: Gender: Female Measurement Technician: : 1945 Requested By: Iván Shaikh Order Number: [id number] Gian MD: Dean Kaye M.D. Measurements Intervals [place] Rate: 94 P: 59 WA: 179 QRS: -26 QRSD: 110 T: 75 QT: 360 QTc: 451 Interpretive Statements SINUS RHYTHM WITH OCCASIONAL VENTRICULAR PREMATURE COMPLEXES INDETERMINATE AXIS INCOMPLETE RIGHT BUNDLE BRANCH BLOCK [90+ ms QRS DURATION, TERMINAL R IN V1/V2, 40+ ms S IN I/aVL/V4/V5/V6] SEPTAL MYOCARDIAL INFARCTION , OF INDETERMINATE AGE [40+ ms Q WAVE IN V1/V2] MODERATE T-WAVE ABNORMALITY, CONSIDER ANTERIOR ISCHEMIA [-0.1+ mV T WAVE IN V3/V4] Compared to ECG 11/06/2019 17:01:08 Indeterminate axis now present Incomplete right bundle-branch block now present Myocardial infarct finding now present Electronically Signed On 05-17-2020 19:58:36 WARD SUPERVISOR by Dean Kaye M.D. [id number]
[2020-05-17 09:09] LABS: Carbon Dioxide 41 mmol/L (22-29)
--- NOTE | 2020-05-17 09:17 | ED_ITS ---
HPI - SOB/Dyspnea General: Chief Complaint: Shortness of Breath/Dyspnea Stated Complaint: SOB/ RESPIRATORY DISTRESS Time Seen by Provider: 05/17/20 08:16 History of Present Illness: HPI Narrative: 74-year-old female presents emergency room with complaints of shortness of breath for the last week along with myalgias low-grade fever moderately productive cough. She has a history of COPD she has some upper abdominal lower chest pain associated with coughing. She denies any hemoptysis. Patient is diabetic and obese with a history of hypertension. Patient is usually on oxygen at 3 to 3-1/2 L/min. In the field EMS states she was at 78% at 3 L by nasal cannula she was at 4 L here when I came in the room and still desatting into the mid to upper 80s just sitting up and in conversation. We increased her to 5 L/min and her oxygen sats remained in the mid 90s. MD elicited complaint: shortness of breath and cough Pertinent past history: COPD Onset (ago): day(s) (6-) Context: anxiety Timing: constant Severity: severe Exacerbating factors: exertion, movement, coughing and talking Relieving factors: oxygen and rest Known history of: COPD Associated symptoms: Reports chest congestion, cough, dizziness, lightheadedness, myalgias, nausea, orthopnea, palpitations and vomiting; Deny abdominal pain, chest pain, diaphoresis, extremity pain, fever(s), hemoptysis, paresthesias, polydipsia, polyuria, rash, sense of impending doom or syncope Treatment prior to arrival: oxygen Review of Systems Const: Denies: fever(s) or diaphoresis ENMT: Denies: throat pain, ear or mastoid pain, nasal discharge or nasal congestion Card: Reports: palpitations, lightheadedness and orthopnea; Denies: chest pain or syncope Resp: Reports: chest congestion; Denies: hemoptysis GI: Reports: nausea and vomiting; Denies: abdominal pain : Denies: flank pain, difficulty voiding, dysuria, urinary frequency or urinary urgency Musc: Denies: extremity pain Skin/Breast: Denies: rash or pruritus Neuro: Reports: dizziness Endo: Denies: polyuria or polydipsia PFS ED PFSH: Medical History (Updated 05/21/20 @ 12:17 by Iván Nation DO) CAD (coronary artery disease) Cataracts, bilateral CHF (congestive heart failure) COPD (chronic obstructive pulmonary disease) Diabetes mellitus Hx of ectopic OLAYINKA (obstructive sleep apnea) Surgical History H/O lymph node excision H/O tubal ligation History of appendectomy History of cholecystectomy History of hysterectomy History of rectal surgery Hx of cataract surgery Hx of tonsillectomy Family History Other CHF (congestive heart failure) Cancer Crohn's disease Diabetes Hypertension Social History Smoking and tobacco status: current every day smoker cigarettes Packs smoked per day: 0.5 Years cigarettes smoked: 56 Alcohol intake: never Lives independently: Yes Household members: none Housing: Apartment Marital status: / Current occupational status: retired and disabled History of recent travel: No Current gender identity: Female Physical Exam Const: COMMON NORMALS: no acute distress GENERAL APPEARANCE: cooperative and comfortable ORIENTATION/CONSCIOUSNESS: Yes awake, Yes oriented to person, Yes oriented to place and Yes oriented to time HENMT: COMMON NORMALS: normocephalic, atraumatic and hearing grossly normal bilaterally HEAD & SCALP: normocephalic and atraumatic Eye: COMMON NORMALS: Equal, round and reactive pupils present, EOMs intact bilaterally, conjunctivae normal and no scleral icterus CONJUNCTIVA: Yes conjunctivae normal PUPIL: Yes Equal, round and reactive pupils present Neck/C-Spine: COMMON NORMALS: no JVD Resp: EFFORT & INSPECTION: Yes tachypneic, Yes pursed lip breathing, Yes labored and Yes grunting AUSCULTATION: rhonchi, wheezes and diminished lung sounds Cardio: COMMON NORMALS: no JVD, regular rate, regular rhythm and No murmurs present (Cardio) RATE: regular rate RHYTHM: regular rhythm GI: COMMON NORMALS: Soft to palpation and No hepatosplenomegaly present AUSCULTATION: Yes normoactive bowel sounds PALPATION: Yes Soft to palpation, No Tenderness to palpation present (GI), No Guarding due to palpation present (GI) and Yes No hepatosplenomegaly present Extremity: COMMON NORMALS: normal to inspection, capillary refill normal, no clubbing, cyanosis or edema, no calf tenderness and no pedal edema Neuro: SENSORIUM/ORIENTATION: Yes oriented to person, Yes oriented to place and Yes oriented to time Skin: COMMON NORMALS: no rashes or lesions noted GENERAL SKIN EXAM: no rashes or lesions noted Course Vital Signs: Vital signs: Vital Signs Temperature 98.6 F 05/17/20 08:18 Pulse Rate 93 05/17/20 13:17 Respiratory Rate 28 H 05/17/20 13:17 Blood Pressure 136/68 05/17/20 13:17 Pulse Oximetry 97 05/17/20 13:17 MDM - SOB/Dyspnea MDM Narrative: Medical decision making narrative: Rapid antigen negative still suspect patient does have Covid. We will go ahead and make arrangements for transfer. We do not have an available ICU bed for her. Lab Data: Labs: Lab Results 05/17/20 05/17/20 05/17/20 Range/Units 08:06 08:06 08:06 WBC 9.0 (4.0-10.0) 10^3/ uL RBC 4.86 (4.1-5.3) 10^6/u L Hgb 13.6 (11.5-15.3) g/dL Hct 46.7 (37.0-47.0) % MCV 96.1 (81-99) fL MCH 28.0 (28.0-34.0) pg MCHC 29.1 L (30.0-36.0) g/dL RDW 13.4 (12.1-15.1) % Plt Count 201 (130-400) 10^3/c mm MPV 11.8 H (7.4-10.4) fL Neut % (Auto) 79.2 % Lymph % (Auto) 7.9 % [place] % (Auto) 4.7 % Eos % (Auto) 6.2 % Baso % (Auto) 1.0 % Neut # (Auto) 7.11 (1.8-7.7) 10^3/u L Lymph # (Auto) 0.7 L (0.8-4.8) 10^3/u L [place] # (Auto) 0.4 (0.2-0.9) 10^3/u L Eos # (Auto) 0.6 (0.0-0.8) 10^3/u L Baso # (Auto) 0.1 (0.0-0.1) 10^3/u L Nucleated RBC % (a uto) 0 % Nucleated RBCs # 0.0 /100WBC Fibrinogen (174-498) mg/dL D-Dimer (0-0.59) ug/mIFE U Specimen Type Sample Site ABG pH (7.35-7.45) ABG pCO2 (35-45) mmHg ABG pO2 (80.0-100.0) mmH g ABG HCO3 (22-26) mmol/L ABG O2 Saturation ABG Base Excess (-2.0-2.0) mmol/ L Kike Test A-a O2 Gradient (5-10) mmHg Hematocrit (37-47) % Hgb O2 Saturation (95-100) % Carboxyhemoglobin (0.4-20.1) %THgb Methemoglobin (0.4-1.5) % Total Hemoglobin (12-16) g/dL Ionized Calcium (1.1-1.4) mmol/L O2 Delivery Device O2 Liters/Min % FiO2 % Laboratory Associate ID Sodium 141 (136-145) mmol/L Potassium 4.1 (3.5-5.1) mmol/L Chloride 93 L (98-107) mmol/L Carbon Dioxide 41 H (22-29) mmol/L Anion Gap 11.1 (5-19) BUN 15 (8-23) mg/dL Creatinine 0.6 (0.5-0.9) mg/dL GFR Calculation Not Reportable Glucose 219 H (65-115) mg/dL Calculated Osmolal ity 300 H (285-295) mOsm/k g Lactic Acid (0.5-2.2) mmol/L Calcium 9.3 (8.5-10.5) mg/dL Ferritin 47 (15-150) ng/mL Total Bilirubin 0.4 (0.15-1.2) mg/dL AST 11 (0-32) U/L ALT 6 (0-33) U/L Alkaline Phosphata se 94 (35-105) IU/L Lactate Dehydrogen ase 159 (135-214) U/L Creatine Kinase 31 (26-192) U/L C-Reactive Protein 13.9 H (0.0-4.9) mg/L NT-Pro-B Natriuret Pep 22 (0-450) pg/mL Total Protein 6.6 (6.6-8.7) g/dL Albumin 4.1 (3.5-5.2) g/dL Globulin 2.5 (1.3-4.6) g/dL Procalcitonin 0.06 (0-0.5) ng/mL SARS-CoV-2 Ag (Rap id) (Negative) 05/17/20 05/17/20 05/17/20 Range/Units 08:06 09:15 09:20 WBC (4.0-10.0) 10^3/ uL RBC (4.1-5.3) 10^6/u L Hgb (11.5-15.3) g/dL Hct (37.0-47.0) % MCV (81-99) fL MCH (28.0-34.0) pg MCHC (30.0-36.0) g/dL RDW (12.1-15.1) % Plt Count (130-400) 10^3/c mm MPV (7.4-10.4) fL Neut % (Auto) % Lymph % (Auto) % [place] % (Auto) % Eos % (Auto) % Baso % (Auto) % Neut # (Auto) (1.8-7.7) 10^3/u L Lymph # (Auto) (0.8-4.8) 10^3/u L [place] # (Auto) (0.2-0.9) 10^3/u L Eos # (Auto) (0.0-0.8) 10^3/u L Baso # (Auto) (0.0-0.1) 10^3/u L Nucleated RBC % (a uto) % Nucleated RBCs # /100WBC Fibrinogen 595 H (174-498) mg/dL D-Dimer 0.35 (0-0.59) ug/mIFE U Specimen Type Sample Site ABG pH (7.35-7.45) ABG pCO2 (35-45) mmHg ABG pO2 (80.0-100.0) mmH g ABG HCO3 (22-26) mmol/L ABG O2 Saturation ABG Base Excess (-2.0-2.0) mmol/ L Kike Test A-a O2 Gradient (5-10) mmHg Hematocrit (37-47) % Hgb O2 Saturation (95-100) % Carboxyhemoglobin (0.4-20.1) %THgb Methemoglobin (0.4-1.5) % Total Hemoglobin (12-16) g/dL Ionized Calcium (1.1-1.4) mmol/L O2 Delivery Device O2 Liters/Min % FiO2 % Laboratory Associate ID Sodium (136-145) mmol/L Potassium (3.5-5.1) mmol/L Chloride (98-107) mmol/L Carbon Dioxide (22-29) mmol/L Anion Gap (5-19) BUN (8-23) mg/dL Creatinine (0.5-0.9) mg/dL GFR Calculation Glucose (65-115) mg/dL Calculated Osmolal ity (285-295) mOsm/k g Lactic Acid 0.8 (0.5-2.2) mmol/L Calcium (8.5-10.5) mg/dL Ferritin (15-150) ng/mL Total Bilirubin (0.15-1.2) mg/dL AST (0-32) U/L ALT (0-33) U/L Alkaline Phosphata se (35-105) IU/L Lactate Dehydrogen ase (135-214) U/L Creatine Kinase (26-192) U/L C-Reactive Protein (0.0-4.9) mg/L NT-Pro-B Natriuret Pep (0-450) pg/mL Total Protein (6.6-8.7) g/dL Albumin (3.5-5.2) g/dL Globulin (1.3-4.6) g/dL Procalcitonin (0-0.5) ng/mL SARS-CoV-2 Ag (Rap id) Negative (Negative) 05/17/20 05/17/20 Range/Units 10:03 11:33 WBC (4.0-10.0) 10^3/ uL RBC (4.1-5.3) 10^6/u L Hgb (11.5-15.3) g/dL Hct (37.0-47.0) % MCV (81-99) fL MCH (28.0-34.0) pg MCHC (30.0-36.0) g/dL RDW (12.1-15.1) % Plt Count (130-400) 10^3/c mm MPV (7.4-10.4) fL Neut % (Auto) % Lymph % (Auto) % [place] % (Auto) % Eos % (Auto) % Baso % (Auto) % Neut # (Auto) (1.8-7.7) 10^3/u L Lymph # (Auto) (0.8-4.8) 10^3/u L [place] # (Auto) (0.2-0.9) 10^3/u L Eos # (Auto) (0.0-0.8) 10^3/u L Baso # (Auto) (0.0-0.1) 10^3/u L Nucleated RBC % (a uto) % Nucleated RBCs # /100WBC Fibrinogen (174-498) mg/dL D-Dimer (0-0.59) ug/mIFE U Specimen Type Arterial Arterial Sample Site Radial, left Brachial, left ABG pH 7.31 L 7.33 L (7.35-7.45) ABG pCO2 85.5 H* 78.8 H* (35-45) mmHg ABG pO2 97.0 80.0 (80.0-100.0) mmH g ABG HCO3 42.7 H 41.4 H (22-26) mmol/L ABG O2 Saturation 97.7 96.2 ABG Base Excess 12.4 H 11.9 H (-2.0-2.0) mmol/ L Kike Test Pos Pos A-a O2 Gradient 9.7 Not Reportable (5-10) mmHg Hematocrit 42.2 41.5 (37-47) % Hgb O2 Saturation 95.8 94.4 L (95-100) % Carboxyhemoglobin 1.1 1.1 (0.4-20.1) %THgb Methemoglobin 0.8 0.8 (0.4-1.5) % Total Hemoglobin 13.8 13.5 (12-16) g/dL Ionized Calcium 1.2 1.2 (1.1-1.4) mmol/L O2 Delivery Device Nc Bipap O2 Liters/Min 4.5 % FiO2 38.0 % Laboratory Associate ID glc Ck Sodium 143.0 143.0 (136-145) mmol/L Potassium 4.5 4.3 (3.5-5.1) mmol/L Chloride (98-107) mmol/L Carbon Dioxide (22-29) mmol/L Anion Gap (5-19) BUN (8-23) mg/dL Creatinine (0.5-0.9) mg/dL GFR Calculation Glucose 208.0 H 182.0 H (65-115) mg/dL Calculated Osmolal ity (285-295) mOsm/k g Lactic Acid (0.5-2.2) mmol/L Calcium (8.5-10.5) mg/dL Ferritin (15-150) ng/mL Total Bilirubin (0.15-1.2) mg/dL AST (0-32) U/L ALT (0-33) U/L Alkaline Phosphata se (35-105) IU/L Lactate Dehydrogen ase (135-214) U/L Creatine Kinase (26-192) U/L C-Reactive Protein (0.0-4.9) mg/L NT-Pro-B Natriuret Pep (0-450) pg/mL Total Protein (6.6-8.7) g/dL Albumin (3.5-5.2) g/dL Globulin (1.3-4.6) g/dL Procalcitonin (0-0.5) ng/mL SARS-CoV-2 Ag (Rap id) (Negative) Discharge Plan Discharge Patient Disposition: Xfer Other Clinical Impression: COPD (chronic obstructive pulmonary disease), Acute and chronic respiratory failure with hypercapnia, Suspected 2019-nCoV infection Referrals: Victorino Francis MD [Primary Care Provider] - Coding Level of Care Code ED Workforce Development Program Director for Chg Fwd Exam Comprehensive
[2020-05-17 09:36] LABS: Fibrinogen 595 mg/dL (174-498)
[2020-05-17 09:39] LABS: D Dimer 0.35 ug/mIFEU (0-0.59)
[2020-05-17 09:44] LABS: NT Pro B Type Natriuretic Pept 22 pg/mL (0-450); Procalcitonin 0.06 ng/mL (0-0.5)
[2020-05-17 09:56] LABS: C Reactive Protein 13.9 mg/L (0.0-4.9); Creatine Phosphokinase 31 U/L (26-192); Ferritin 47 ng/mL (15-150); Lactate Dehydrogenase 159 U/L (135-214)
[2020-05-17 10:07] LABS: Lactic Sepsis W/Reflex 0.8 mmol/L (0.5-2.2)
[2020-05-17 10:14] LABS: ABG PH Result 7.31 (7.35-7.45); Alveolar-Arterial Oxygen Gradi 9.7 mmHg (5-10); Arterial Blood Gas Hematocrit 42.2 % (37-47); Base Excess ABG 12.4 mmol/L (-2.0-2.0); Blood Gas Allen Test Pos; Blood Gas LPM 4.5 %; Blood Gas Operator Identificat glc; Blood Gas Sample Site Radial, left; Blood Gas Sample Type Arterial; Carboxyhemoglobin 1.1 %THgb (0.4-20.1); HCO3 ABG 42.7 mmol/L (22-26); HGB O2 Sat 95.8 % (95-100); Ionized Calcium Level - ABG 1.2 mmol/L (1.1-1.4); Methemoglobin 0.8 % (0.4-1.5); Oxygen Device NC; Oxygen Saturation ABG 97.7; Potassium Level - ABG 4.5 mmol/L (3.5-5.0); Total Hemoglobin 13.8 g/dL (12-16)
[2020-05-17 10:18] LABS: ABG PCO2 85.5 mmHg (35-45)
[2020-05-17 10:26] LABS: SARS Covid-2 Antigen Negative (Negative)
[2020-05-17] MEDS: ipratropium-albuterol 3 mL Neb 6 ML INHALATION (10:57)
[2020-05-17] MEDS: sodium chloride 0.9% 500 ML 999 ML IV (11:03)
[2020-05-17 11:44] LABS: ABG PH Result 7.33 (7.35-7.45); Arterial Blood Gas Hematocrit 41.5 % (37-47); Base Excess ABG 11.9 mmol/L (-2.0-2.0); Blood Gas Allen Test Pos; Blood Gas Operator Identificat CK; Blood Gas Sample Site Brachial, left; Blood Gas Sample Type Arterial; Carboxyhemoglobin 1.1 %THgb (0.4-20.1); HCO3 ABG 41.4 mmol/L (22-26); HGB O2 Sat 94.4 % (95-100); Ionized Calcium Level - ABG 1.2 mmol/L (1.1-1.4); Methemoglobin 0.8 % (0.4-1.5); Oxygen Device BIPAP; Oxygen Saturation ABG 96.2; Potassium Level - ABG 4.3 mmol/L (3.5-5.0); Total Hemoglobin 13.5 g/dL (12-16)
[2020-05-17 11:45] LABS: ABG PCO2 78.8 mmHg (35-45)
== END 2020-05-17 14:09 | disposition other institution (70) ==
PROVIDERS: Emergency Provider Family Medicine; PCP Family Medicine
DX: J44.9 Chronic obstructive pulmonary disease, unspecified (principal); J96.22 Acute and chronic respiratory failure with hypercapnia; Z20.828 Contact with and (suspected) exposure to other viral communicable diseases; I25.10 Atherosclerotic heart disease of native coronary artery without angina pectoris; I50.9 Heart failure, unspecified; E11.9 Type 2 diabetes mellitus without complications; F17.210 Nicotine dependence, cigarettes, uncomplicated
CPT/HCPCS: 12345; 36600; 71045; 80051; 80053; 82330; 82550; 82728; 82805; 83605; 83615; 83880; 84145; 85025; 85378; 85384; 86140; 87040; 87205; 87426; 93005; 94640; 94660; 96374; 99283; 99291; J2930; J7040

== ENCOUNTER → 2020-05-28 10:53 | Outpatient (BNVA) | payer MEDICARE, SELFPAY | PROVIDERS: PCP Family Medicine; Referring Provider Family Medicine; Visit Provider Internal Medicine | DX: E11.59 Type 2 diabetes mellitus with other circulatory complications (principal); I25.10 Atherosclerotic heart disease of native coronary artery without angina pectoris; E11.65 Type 2 diabetes mellitus with hyperglycemia; E78.2 Mixed hyperlipidemia; I10 Essential (primary) hypertension | CPT/HCPCS: 99204 ==

== ENCOUNTER 2020-07-12 09:35 | Outpatient (CLI) | payer OTHER, SELFPAY ==
[2020-07-12 09:52] VITALS: BMI 28.3
[2020-07-12 09:53] VITALS: BP 148/78; PULSE 80; RESP 21; TEMP 36.8; O2SAT 97
--- NOTE | 2020-07-12 10:03 | AMB.MCA ---
Patient Information Referred by: Symptom onset date: 07/03/20 COVID 19 common symptoms: positive fever(s), chills, cough and non-productive cough COVID 19 other sytmptoms: negative chest pressure, chest pain, pleuritic pain, requiring oxygen, requiring more oxygen, respiratory distress, cyanosis, lethargy, confusion, new neurological complaints or other concerning symptoms Severity: moderate Treatment prior to arrival: none [facility] COVID test results: SARS-CoV-2 Antigen (Rapid) Negative (Negative) 05/17/20 09:20 05/17/20 SARS-CoV-2 RNA (RT-PCR) Not detected (NOT DETECTED) 01/27/20 21:50 01/27/20 Criteria/Plan Inclusion/Exclusion Criteria weight >/= 40kg, + direct test </= 10 days ago and symptom onset </= 10 days ago age >/= 65, has diabetes, age >/= 55 and has hypertension, age >/= 55 and has diabetes and age >/= 55 and has COPD/lung diease not requiring hospitalization, not requiring oxygen (if not chronically on oxygen) and no increase oxygen requirement (if chronically on oxygen) Patient education patient/caregiver received/reviewed fact sheet, Emergency Use Authorization/unapproved drug status discussed with patient/caregiver, alternatives to this treatment discussed with patient/caregiver, risks and benefits of medication reviewed with patient/caregiver, patient/caregiver given opportunity for questions, which were answered and patient/caregiver consents to receiving Monoclonal Antibody Treatment Plan for treatment Meets criteria for Monoclonal Antibody infusion Ordering Monoclonal Antibody infusion for today
[2020-07-12 10:54] VITALS: BP 145/81; PULSE 85; RESP 20; TEMP 36.7; O2SAT 98
[2020-07-12 11:11] VITALS: BP 158/82; PULSE 88; RESP 21; TEMP 36.7; O2SAT 95
[2020-07-12 12:12] VITALS: BP 149/75; PULSE 83; RESP 20; TEMP 36.6; O2SAT 100
[2020-07-12 12:18] VITALS: BP 149/75; PULSE 83; RESP 20; TEMP 36.6; O2SAT 100
--- NOTE | 2020-07-12 12:19 | PC.NURSE ---
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 iv removed intact, treatment tolerated well.
--- NOTE | 2020-07-18 14:13 | DCPLANNER ---
Addendum entered by Leilani Garibay 07/24/20 10:57: manager outreach called to check on patient after getting the BAM infusion. Patient stated that she is doing good, stated that she still has a sore throat, but she is feeling good. Original Note: manager outreach had message that patient received the BAM infusion. manager outreach called to check on patient after receiving the BAM infusion. Patient stated that she is doing good. Before the infusion she had a low grade fever, a runny nose, never had really any severe symptoms. Patient stated that she is doing fine, still has a low grade fever, and a sore throat.
== END 2020-07-12 12:19 | disposition home or self-care (01) ==
LOC: OPS 09:36
PROVIDERS: PCP Family Medicine; Visit Provider Nurse Practitioner
DX: U07.1 COVID-19 (principal)
CPT/HCPCS: 96365; J7050